=== PATIENT | male | born 1975 | race Caucasian/White ===

== ENCOUNTER 2016-12-27 12:48 | Inpatient (IN) | payer OTHER ==
[~2016-12-27] VITALS: Ht 175.3 cm; Wt 91.4 kg
[2016-12-27 13:46] LABS: AMPHETAMINES LEVEL URINE NEGATIVE (NEGATIVE); BENZODIAZEPINES URINE NEGATIVE (NEGATIVE); COCAINE METABOLITE URINE NEGATIVE (NEGATIVE); CONTROL LINE INT CTR LINE PRESENT; METHADONE URINE NEGATIVE (NEGATIVE); OPIATES URINE NEGATIVE (NEGATIVE); TRICYCLIC ANTIDEPRESS URINE NEGATIVE (NEGATIVE)
[2016-12-27 13:52] LABS: MEAN CORPUSCULAR HEMOGLOBIN 30.1 pg (27.0-33.0); MEAN CORPUSCULAR HGB CONC 34.5 g/dl (32.0-36.5); MEAN CORPUSCULAR VOLUME 87.2 fl (80.0-96.0); RED CELL DISTRIBUTION WIDTH 12.2 % (11.5-14.5); WHITE BLOOD COUNT 7.7 K/mm3 (4.0-10.0)
[2016-12-27 14:05] LABS: ALKALINE PHOSPHATASE 68 U/L (45-117); ALT/SGPT 27 U/L (12-78); ANION GAP 7 MEQ/L (8-16); AST/SGOT 15 U/L (15-37); BLOOD UREA NITROGEN 12 MG/DL (7-18); CALCIUM LEVEL 9.2 MG/DL (8.5-10.1); CARBON DIOXIDE LEVEL 29 MEQ/L (21-32); CHLORIDE LEVEL 104 MEQ/L (98-107); CREATININE FOR GFR 0.86 MG/DL (0.70-1.30); GLOMERULAR FILTRATION RATE > 60.0 (>60); GLUCOSE, FASTING 93 MG/DL (70-105); POTASSIUM SERUM 4.3 MEQ/L (3.5-5.1); SODIUM LEVEL 140 MEQ/L (136-145)
[2016-12-27 14:06] LABS: ALBUMIN/GLOBULIN RATIO 1.33 (1.00-1.93); BILIRUBIN,DIRECT < 0.1 MG/DL (0.0-0.2); BILIRUBIN,TOTAL 0.3 MG/DL (0.2-1.0)
[2016-12-27] MEDS ORDERED: PROZ40CA PO (15:50)
--- NOTE | 2016-12-27 17:12 | EDDOCDS ---
Physician Documentation [facility] Name: Kevin Morataya Age: 41 yrs Sex: Male : 1975 Arrival Date: 12/27/2016 Time: 12:48 Bed BHU1 Private MD: NO PRIMARY PHYSICIAN, . Disposition: 12/27/16 15:50 Hospitalization ordered by Brandi Phillips for Inpatient Admission. Preliminary diagnosis is Post-traumatic stress disorder (PTSD). - Bed requested for Admit. - Status is Inpatient Admission. mcp - Condition is Stable. - Problem is an ongoing problem. - Symptoms have worsened. Historical: - Allergies: no known allergies; - Home Meds: 1. Prozac 40 mg Oral cap 1 cap once daily - PMHx: Depression; PTSD; - PSHx: none; - Social history: Smoking status: Patient uses tobacco products, heavy tobacco smoker. No barriers to communication noted, The patient speaks fluent Puerto Rican, Speaks appropriately for age. - Family history: Not pertinent. - : The pt / caregiver states he / she is not on anticoagulants. Home medication list is obtained from the patient. - Exposure Risk Screening:: None identified. Vital Signs: 12/27 12:50 BP 122 / 67; Pulse 80; Resp 18 S; Temp 95.9(O); Pulse Ox 98% on R/A; Weight 85.28 kg / gr2 188.01 lbs (R); Height 69 in. (175.26 cm) (R); Pain 0/10; 17:04 BP 130 / 86; Pulse 83; Resp 18; Temp 97(O); Pulse Ox 96% on R/A; Pain 0/10; mcp 12:50 Body Mass Index 27.76 (85.28 kg, 175.26 cm) gr2 MDM: 13:09 Consult PFS/PSA/School Cafeteria Head Cook ordered. br1 13:09 Consult PFS/PSA/School Cafeteria Head Cook: Patient's case requires discussion with on-call br1 Psychiatrist ordered. 13:09 PSA/PFS to call Nursing Drywall Hanger Framer, to enter patient data on [place] Safe Act if patient br1 involuntarily admitted or transferred for SI or HI ordered. 13:09 Confirm accurate psychiatric medication list and times of last dosage ordered. br1 13:09 Detain Pt Until Medically/PFS Cleared ordered. br1 13:10 Acetaminophen Level Ordered. EDMS 13:10 Basic Metabolic Profile Ordered. EDMS 13:10 Complete Blood Count Ordered. EDMS 13:10 Drug Eval Toxicology ED Only Ordered. EDMS 13:10 Ethyl Alcohol (ethanol) Ordered. EDMS 13:10 Liver Profile Ordered. EDMS 13:10 Salicylate Level Ordered. EDMS 13:10 Thyroid Stimulating Hormone Ordered. EDMS 13:34 REGULAR DIET PLASTIC BLANK+DIET ordered. EDMS 14:29 Acetaminophen Level Reviewed. br1 14:29 Basic Metabolic Profile Reviewed. br1 14:29 Salicylate Level Reviewed. br1 14:29 Complete Blood Count Reviewed. br1 14:29 Drug Eval Toxicology ED Only Reviewed. br1 14:29 Ethyl Alcohol (ethanol) Reviewed. br1 14:29 Liver Profile Reviewed. br1 14:29 Thyroid Stimulating Hormone Reviewed. br1 14:30 Consult PFS/PSA/Socail Worker: Cleared medically for eval ordered. br1 14:45 BED REQUEST+ADM ordered. EDMS 14:58 Financial registration complete. lg 15:14 [facility] Payment Agreement was scanned into [employer] and attached to record. lg 16:24 Admit to IMHU: ordered. EDMS 16:29 [facility] Legal paperwork was scanned into [employer] and attached to record. jl 16:29 Consult PFS/PSA/Socail Worker: Cleared medically for eval complete. jl 16:29 Consult PFS/PSA/School Cafeteria Head Cook complete. jl 16:29 Consult PFS/PSA/School Cafeteria Head Cook: Patient's case requires discussion with on-call jl Psychiatrist complete. 16:29 PSA/PFS to call Nursing Drywall Hanger Framer, to enter patient data [place] Safe [place] if patient jl involuntarily admitted or transferred for SI or HI complete. Signatures: Dispatcher [employer] EDToyin Edwards RN [place] Lujan mcp, PSA PSA Jerry Berrios, Reg Reg lg Davey Bueno RN RN mlNadeem Blackwood MD MD br1 The chart was reviewed and I authenticate all verbal orders and agree with the evaluation and treatment provided.Attachments: 15:14 [facility] Payment Agreement lg MTDD
--- NOTE | 2016-12-27 17:12 | EDDOCDS ---
Nurse's Notes [facility] Name: Kevin Morataya Age: 41 yrs Sex: Male : 1975 Arrival Date: 12/27/2016 Time: 12:48 Bed [facility] Private MD: NO PRIMARY PHYSICIAN, . Diagnosis: Post-traumatic stress disorder (PTSD) Presentation: 12/27 12:55 Presenting complaint: Patient states: "I want to kill myself". Mental Health Triage mlb1 Level: Level 2: The patient displays active suicidal ideations. Adult Sepsis Screening: The patient does not have new or worsening altered mentation. Patient's respiratory rate is less than 22. Systolic blood pressure is greater than 100. Patient has a qSOFA score of 0- Negative Sepsis Screen. 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 Transition of care: patient was not received from another setting of care. Red Flag criteria, patient assessed and taken directly to a bed. 12:55 Acuity: TAYLOR Level 3 mlb1 12:55 Method Of Arrival: Walkin/Carried/Asstd mlb1 12:57 Mental Health Triage Level: Level 2:. Suicide/Homicide risk assessment- The patient mlb1 admits to and/or has been reported to be having suicidal ideations. The patient reports that he/she has not been admitted to an inpatient mental health facility in the last 30 days. The patient reports that he/she does not have a recent or current history of substance abuse. The patient reports that he/she has a prior history of suicide attempt and/or organized plan. The patient reports that he/she has experienced a significant life altering event in the last 30 days. The patient reports that he/she has adequate social support. The patient reports he/she has no significant chronic medical condition(s). Triage Assessment: 12:57 General: Appears in no apparent distress, Behavior is cooperative, flat. Pain: Denies mlb1 pain. Pt Declines HIV testing. Historical: - Allergies: no known allergies; - Home Meds: 1. Prozac 40 mg Oral cap 1 cap once daily - PMHx: Depression; PTSD; - PSHx: none; - Social history: Smoking status: Patient uses tobacco products, heavy tobacco smoker. No barriers to communication noted, The patient speaks fluent Bengali, Speaks appropriately for age. - Family history: Not pertinent. - : The pt / caregiver states he / she is not on anticoagulants. Home medication list is obtained from the patient. - Exposure Risk Screening:: None identified. Screenin:04 Screening information is obtained from the patient. Fall risk: No risks identified. mcp Assistance ADL's: requires no assistance with activities of daily living. Abuse/DV Screen: The patient / caregiver reports he/she is: not in a situation that causes fear, pain or injury. Nutritional screening: No deficits noted. Advance Directives: Currently, there is no health care proxy. There is no active DNR order. home support is adequate. Assessment: 14:04 General: Appears in no apparent distress, comfortable, Behavior is cooperative. Pain: mcp Denies pain. Neurological: No deficits noted. Respiratory: Airway is patent Respiratory effort is even, unlabored. Derm: Skin is pink, warm & dry. 15:00 General: Appears in no apparent distress, comfortable, Behavior is cooperative. Pain: mcp Denies pain. Neurological: No deficits noted. Respiratory: Airway is patent Respiratory effort is even, unlabored. Derm: Skin is pink, warm & dry. 16:00 General: Appears in no apparent distress, comfortable, Behavior is cooperative. Pain: mcp Denies pain. Neurological: No deficits noted. Respiratory: Airway is patent Respiratory effort is even, unlabored. Derm: Skin is pink, warm & dry. 17:03 General: Appears in no apparent distress, comfortable, Behavior is cooperative. Pain: mcp Denies pain. Neurological: No deficits noted. Respiratory: Airway is patent Respiratory effort is even, unlabored. Derm: Skin is pink, warm & dry. Mental Health Eval: 14:36 Mental health consult is initiated at 13:30. Status: Patient states that he jl retired from the recently, following 20 years of service. [facility] Behavioral Health: The patient is not an established patient of [facility] Behavioral Health. Referral Information: Evaluation referral is generated by the patient himself / herself. The patient was referred for evaluation because of worsening sx of PTSD & depression, including SI with a plan. Subjective: The patients chief complaint is "I was going to kill myself". Delusions are denied. Patient's mood is both depressed & anxious. Hallucinations are denied. Patient reports having a long h/o depression & anxiety, with no treatment hx until just a couple of weeks ago. 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 Prior to his separation, he saw a psychiatrist for the first time. He admits that he has been depressed for "At least 3 or 4 years". He states that he was started on Prozac, although is yet to receive any benefit. He reports multiple deployments ([place], [place] & [place]) during his career & reports being dx with PTSD when he saw that psychiatrist. He relates experiencing significant anxiety, erratic sleep (sweats, nightmares, teeth grinding), erratic appetite, & was noted to display increased PMA during the interview. He admits that he had a plan for suicide that included taking Rx morphine pills that belong to his . He states that he lives with his . They have 2 children, ages 21 & 13. He states that it was the thought of his family that kept him from carrying out his plan. He denies h/o attempts or substance abuse. Mental Health history: Untreated depression, anxiety, sx of PTSD & sleep disturbance. Mental Health Admissions: None. Current Outpatient Mental Health Services: None. Current living environment is The patient currently lives with his family. Patient presents to Emergency Department with the following symptoms within the past 2 weeks: anxiety, erratic appetite depressed mood, sleep disturbance - erratic suicidal ideation with plan for pills. Substance abuse: Pt denies. Mental status exam: Patients appearance is appropriate, Patient's behavior is appropriate, with some increased psychomotor activity noted. Speech is unspontaneous Affect is restricted. Mood is anxious. depressed. Hallucinations are denied. Appetite is erratic Memory is good. Energy level is normal. Content of thought is normal. Thought process is intact. Cognitive level is oriented to person, place, time and situation Patient's insight is fair. Judgement is good. Rapport with interviewer is good. Suicidal Ideation present with a plan to kill self by pills. Homicidal ideation is denied. 15:43 Disposition: Medically cleared for disposition by Nadeem Allen MD Psychiatric Consult jl is performed by phone with Dr Brandi Phillips. [facility] Admission Criteria: The patient is experiencing suicidal ideation. The patient requires continuous observation and/or control to protect self, others or property. The patient's care requires a multi-modal treatment plan under close supervision and coordination due to the complexity and severity of the patient's symptoms. Legal Status: Patient's legal status will be Emergency admission: 9.39. DSM-V Differential Diagnosis: Major Depressive Disorder recurrent episode (F33.0) severe (F33.2) Posttraumatic Stress Disorder (F 43.10). Insurance Pre-Certification: Not Required. Vital Signs: 12:50 BP 122 / 67; Pulse 80; Resp 18 S; Temp 95.9(O); Pulse Ox 98% on R/A; Weight 85.28 kg gr2 (R); Height 69 in. (175.26 cm) (R); Pain 0/10; 17:04 BP 130 / 86; Pulse 83; Resp 18; Temp 97(O); Pulse Ox 96% on R/A; Pain 0/10; mcp 12:50 Body Mass Index 27.76 (85.28 kg, 175.26 cm) gr2 Vitals: 12:50 Log In Time: December 27, 2016 at 12:50. RN notified that patient meets Red Flag gr2 criteria. ED Course: 12:49 Patient visited by Jessica Iraheta. gr2 12:49 NO PRIMARY PHYSICIAN, . is Private Physician. gr2 12:49 Patient moved to Waiting gr2 12:53 Patient visited by Jessica Iraheta. gr2 12:55 Patient visited by Davey Bueno RN. mlb1 12:55 Triage Initiated mlb1 12:57 Patient visited by Davey Bueno RN. mlb1 12:57 Patient moved to [facility] mlb1 12:58 Patient visited by Dvaey Bueno RN. mlb1 13:00 Patient visited by Mathew Nguyen. rn1 13:09 Nadeem Allen MD is Attending Physician. br1 13:22 Patient visited by Mathew Nguyen. rn1 13:30 Patient visited by Mathew Nguyen. rn1 13:37 Patient visited by [place] PSA. jl 13:45 Patient visited by Mathew Nguyen. rn1 14:05 Patient visited by Toyin Green RN. mcp 14:05 The patient / caregiver is instructed regarding the plan of care and ED course. Patient mcp has correct armband on for positive identification. Placed in psych safe attire. Bed in low position. Call light in reach. 14:05 No IV's were initiated during this patient's visit. No procedures done that require mcp assistance. 14:06 Patient visited by Mathew Nguyen. rn1 14:18 Patient visited by Mathew Nguyen. rn1 14:30 Patient visited by Mathew Nguyen. rn1 14:36 Patient visited by Nadeem Allen MD. br1 14:45 Patient visited by Mathew Nguyen. rn1 15:00 Patient visited by Mathew Nguyen. rn1 15:11 Patient name changed from Kevin\\S\\G\\S\\Ray\\S\\ to Kevin\\S\\Nathan\\S\\Ray. EDMS 15:14 [facility] Payment Agreement was scanned into [employer] and attached to record. lg 15:15 Patient visited by Mathew Nguyen. rn1 15:36 Patient visited by Paula Richards PCA. rs6 15:50 Patient visited by Mathew Nguyen. rn1 15:50 Brandi Phillips is Hospitalizing Provider. br1 15:53 Patient visited by Paula Richards PCA. rs6 16:11 Patient visited by Paula Richards PCA. rs6 16:15 Pt greeted and oriented to ED. Patient advised of names of staff involved in care, rs6 location of call mayo, wait times and NPO status. Security observing. Cardiac monitoring not applicable on this patient. 16:15 Psych Safety Check: Location: Medical Room. Visual Assessment: Sleeping, Cooperative. rs6 16:26 Patient visited by Paula Richards PCA. rs6 16:29 [facility] Legal paperwork was scanned into [employer] and attached to record. jl 16:40 Patient visited by Paula Richards PCA. rs6 Attachments: 16:29 [facility] Legal paperwork jl Order Results: Lab Order: Acetaminophen Level; SPEC'M 12/27/16 13:24 Test: ACETAMINOPHEN LEVEL; Value: < 2.0; Range: 10.0-30.0; Abnormal: Below low normal; Units: UG/ML; Status: F Lab Order: Basic Metabolic Profile; SPEC'M 12/27/16 13:24 Test: GLUCOSE, FASTING; Value: 93; Range: 70-105; Units: MG/DL; Status: F Test: BLOOD UREA NITROGEN; Value: 12; Range: 7-18; Units: MG/DL; Status: F Test: CREATININE FOR GFR; Value: 0.86; Range: 0.70-1.30; Units: MG/DL; Status: F Test: GLOMERULAR FILTRATION RATE; Value: > 60.0; Range: >60; Status: F Test: SODIUM LEVEL; Value: 140; Range: 136-145; Units: MEQ/L; Status: F Test: POTASSIUM SERUM; Value: 4.3; Range: 3.5-5.1; Units: MEQ/L; Status: F Test: CHLORIDE LEVEL; Value: 104; Range: 98-107; Units: MEQ/L; Status: F Test: CARBON DIOXIDE LEVEL; Value: 29; Range: 21-32; Units: MEQ/L; Status: F Test: ANION GAP; Value: 7; Range: 8-16; Abnormal: Below low normal; Units: MEQ/L; Status: F Test: CALCIUM LEVEL; Value: 9.2; Range: 8.5-10.1; Units: MG/DL; Status: F Test Note: ; Units are mL/min/1.73 m2 Chronic Kidney Disease Staging per NKF: Stage I & II GFR >=60 Normal to Mildly Decreased Stage III GFR 30-59 Moderately Decreased Stage IV GFR 15-29 Severely Decreased Stage V GFR <15 Very Little GFR Left ESRD GFR <15 on CRAFT RECRUITER Lab Order: Complete Blood Count; [facility]' 12/27/16 13:24 Test: WHITE BLOOD COUNT; Value: 7.7; Range: 4.0-10.0; Units: K/mm3; Status: F Test: RED BLOOD COUNT; Value: 5.12; Range: 4.30-6.10; Units: M/mm3; Status: F Test: HEMOGLOBIN; Value: 15.4; Range: 14.0-18.0; Units: g/dl; Status: F Test: HEMATOCRIT; Value: 44.6; Range: 42.0-52.0; Units: %; Status: F Test: MEAN CORPUSCULAR VOLUME; Value: 87.2; Range: 80.0-96.0; Units: fl; Status: F Test: MEAN CORPUSCULAR HEMOGLOBIN; Value: 30.1; Range: 27.0-33.0; Units: pg; Status: F Test: MEAN CORPUSCULAR HGB CONC; Value: 34.5; Range: 32.0-36.5; Units: g/dl; Status: F Test: RED CELL DISTRIBUTION WIDTH; Value: 12.2; Range: 11.5-14.5; Units: %; Status: F Test: PLATELET COUNT, AUTOMATED; Value: 211; Range: 150-450; Units: k/mm3; Status: F Lab Order: Drug Eval Toxicology ED Only; SPEC'M 12/27/16 13:26 Test: AMPHETAMINES LEVEL URINE; Value: NEGATIVE; Range: NEGATIVE; Status: F Test: BARBITURATES URINE; Value: NEGATIVE; Range: NEGATIVE; Status: F Test: BENZODIAZEPINES URINE; Value: NEGATIVE; Range: NEGATIVE; Status: F Test: CANNABINOIDS URINE; Value: NEGATIVE; Range: NEGATIVE; Status: F Test: COCAINE METABOLITE URINE; Value: NEGATIVE; Range: NEGATIVE; Status: F Test: METHADONE URINE; Value: NEGATIVE; Range: NEGATIVE; Status: F Test: OPIATES URINE; Value: NEGATIVE; Range: NEGATIVE; Status: F Test: TRICYCLIC ANTIDEPRESS URINE; Value: NEGATIVE; Range: NEGATIVE; Status: F Test Note: ; ALL PRESUMPTIVE POSITIVE FINDINGS ARE UNCONFIRMED NORMAL VALUES THRESHOLD IN NG/ML AMPHETAMINES 1000 METHAMPHETAMINES 1000 BARBITURATES 300 BENZODIAZEPINES 300 CANNABINOIDS (THC) 50 COCAINE METABOLITE 300 METHADONE 300 OPIATES 300 PHENCYCLIDINE 25 TRICYCLIC ANTIDEPRESSANTS 1000 RESULTS ARE FOR MEDICAL PURPOSES ONLY. ALL URINE SPECIMENS WILL BE SAVED FOR 3 DAYS. IF CONFIRMATION OF A PRESUMPTIVE POSTIVE SCREEN RESULT IS DESIRED, CALL CHEMISTRY ([phone]) AND REQUEST URINE TO BE SENT TO REFERENCE LAB. FOR A LIST OF CLOSELY RELATED COMPOUNDS PLEASE CALL THE LAB. Lab Order: Ethyl Alcohol (ethanol); SPEC'M 12/27/16 13:24 Test: ETHYL ALCOHOL (ETHANOL); Value: < 0.003; Range: 0.000-0.010; Units: %; Status: F Lab Order: Liver Profile; SPEC'M 12/27/16 13:24 Test: AST/SGOT; Value: 15; Range: 15-37; Units: U/L; Status: F Test: ALT/SGPT; Value: 27; Range: 12-78; Units: U/L; Status: F Test: ALKALINE PHOSPHATASE; Value: 68; Range: 45-117; Units: U/L; Status: F Test: BILIRUBIN,TOTAL; Value: 0.3; Range: 0.2-1.0; Units: MG/DL; Status: F Test: BILIRUBIN,DIRECT; Value: < 0.1; Range: 0.0-0.2; Units: MG/DL; Status: F Test: TOTAL PROTEIN; Value: 7.0; Range: 6.4-8.2; Units: GM/DL; Status: F Test: ALBUMIN; Value: 4.0; Range: 3.2-5.2; Units: GM/DL; Status: F Test: ALBUMIN/GLOBULIN RATIO; Value: 1.33; Range: 1.00-1.93; Status: F Lab Order: Salicylate Level; SPEC'M 12/27/16 13:24 Test: SALICYLATE LEVEL; Value: 2.3; Range: 5.0-30.0; Abnormal: Below low normal; Units: MG/DL; Status: F Lab Order: Thyroid Stimulating Hormone; SPEC'M 12/27/16 13:24 Test: THYROID STIMULATING HORMONE; Value: 1.140; Range: 0.358-3.740; Units: uIU/ML; Status: F Outcome: 15:50 Decision to Hospitalize by Provider. br1 17:04 Discharge Assessment: patient administered narcotics - no. The following High Risk [facility] Discharge criteria are identified: None. Admitted to Psych accompanied by tech, via wheelchair, with chart. Condition: stable. No special radiology studies were completed. Property :Personal belongings accompany Pt. 17:[address] [facility] Signatures: Dispatcher [employer] Toyin Serrano, RN RN [facility] [place], PSA PSA Jerry Berrios, Davey Escudero lg RN RN mlb1 Nadeem Allen MD MD br1 Jessica Iraheta gr2 Paula Richards, NIDA LUMBER INSPECTOR rs6 Mathew Nguyen rn1 Corrections: (The following items were deleted from the chart) 12:58 12:55 Suicide/Homicide risk assessment- the patient denies having any suicidal and/or mlb1 homicidal ideations and does not present with any other emotional, behavioral or mental health complaints mlb1 MTDD
[2016-12-27 17:19] VITALS: BP 130/82
[2016-12-27] MEDS ORDERED: MOM 30ML SUSPENSION UDC PO PRN (18:15)
[2016-12-27] MEDS ORDERED: ACETAMINOPHEN TAB 650MG DOSE (2X325MG) PO PRN (18:15)
[2016-12-27] MEDS ORDERED: MAALOX 30 ML SUSP *UDC PO PRN (18:15)
[2016-12-27] MEDS ORDERED: traZODone 50 MG TAB PO PRN (18:15)
[2016-12-27] MEDS: NICOTINE 21MG/24HR 1 EA TRANSDERMAL TD SCH (19:24)
[2016-12-28 07:05] VITALS: BP 125/71
[2016-12-28] MEDS: NICOTINE 21MG/24HR 1 EA TRANSDERMAL TD SCH (08:56)
[2016-12-28] MEDS: FLUoxetine 20 MG CAP PO SCH (08:56)
--- NOTE | 2016-12-28 09:45 | HPEPDOC ---
Medical History and Physical Date of Admission Dec 27, 2016 at 17:20 History and Physical PCP: None ATTENDING: Dr. Raheem Wild HPI: 41yoM admitted to [facility] for other specified depressive disorder, being medically examined today. No acute medical complaints today. Denies any fevers, chills, weakness, fatigue, GARCIA, CP, SOB, cough, palpitations, abdominal pain, N/V /D or changes in bowel or bladder habits. 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 ROS: As noted in HPI, otherwise 11pt ROS of systems reviewed and unremarkable PE: GEN: 41yoM, appears stated age. Well-nourished, well developed. No acute distress. Alert and oriented x 3. Pleasant, interactive. HEENT: Normocephalic, atraumatic. Pupils are equal, round, and reactive to light. Extraocular movements are intact. No nystagmus appreciated. Sclera are nonicteric. Conjunctiva without injection. Nose midline. Nasal turbinates without bogginess. EACs both patent BL. TMs both visualized and mauro with good cone of light, no bulging or erythema. No facial asymmetry. Moist mucous membranes. Dentition fair. Pharynx pink and moist, no cobblestoning. Neck supple , trachea midline. No lymphadenopathy or thyromegaly appreciated. CHEST: Regular rate and rhythm, +S1, +S2 LUNGS: Clear to auscultation bilaterally. No wheezes, rales, or rhonchi. Breathing appears symmetric and easy. Patient is speaking in full sentences. No accessory muscle use. ABD: Round, soft, non-tender, non-distended. +Bowel sounds throughout. No rebound or guarding. No costovertebral angle tenderness. EXT: Pulses 2+ bilaterally dorsalis pedis and radial. No lower extremity edema appreciated. SKIN: [place], dry, warm. Capillary refill <2sec. No rashes. NEURO: Alert and oriented x 3. Cranial nerves III-XII are intact. No focal deficits appreciated. EKG: pending. A&P: 41yoM admitted to [facility] for other specified depressive disorder 1. Psych. Plan per Psychiatry. Obtain baseline EKG to assure the safety of psychiatric medications as they can prolong the QT interval. 2. Nicotine dependence. Patch available. 3. Follow up. No Primary Care Provider. Will attempt to establish PCP on discharge. 4. Staff member present throughout exam, kimmy Neff. Vital Signs Vital Signs Label Value Date Time Patient Temperature 96.0 degrees F 12/28/16704 Pulse 70 12/28/16 07 Respiratory Rate 16 bpm 12/28/16 07 Blood Pressure Assessment 125/71 (89) 12/28/16 0705 Laboratory Data Labs 24H Laboratory Tests 2 12/27/16 13:24: Acetaminophen Level < 2.0L, Aspartate Amino Transf (AST/SGOT) 15, Alanine Aminotransferase (ALT/SGPT) 27, Alkaline Phosphatase 68, Total Bilirubin 0.3, Direct Bilirubin < 0.1, Albumin 4.0, Albumin/Globulin Ratio 1.33, Anion Gap 7L, Calcium Level 9.2, Ethyl Alcohol Level < 0.003, Glomerular Filtration Rate > 60.0, Salicylates Level 2.3L, Thyroid Stimulating Hormone (TSH) 1.140, Total Protein 7.0 12/27/16 13:26: Urine Amphetamine Level NEGATIVE, Urine Benzodiazepines Screen NEGATIVE, Urine Cannabinoids NEGATIVE, Urine Cocaine Metabolite NEGATIVE, Urine Opiates Screen NEGATIVE, Urine Barbiturates, Qualitative NEGATIVE, Urine Methadone Screen NEGATIVE, Urine Tricyclic Antidepressants NEGATIVE CBC/BMP Laboratory Tests 12/27/16 13:24 Red Blood Count 5.12, Mean Corpuscular Volume 87.2, Mean Corpuscular Hemoglobin 30.1, Mean Corpuscular Hemoglobin Concent 34.5, Red Cell Distribution Width 12.2 Home Medications Scheduled Fluoxetine HCl (Prozac) 40 Mg Cap 40 MG PO QHS Allergies Coded Allergies: No Known Allergies (Unverified , 12/27/16) Lalita Chapman Dec 28, 2016 09:45
[2016-12-28] MEDS ORDERED: traZODone 50 MG TAB PO PRN (11:15)
--- NOTE | 2016-12-28 11:46 | MHHPE ---
DATE OF ADMISSION: 12/27/2016 LEGAL STATUS ON ADMISSION: 9.39 legal status. CHIEF COMPLAINT: "I was feeling depressed and I had suicidal thoughts." HISTORY OF PRESENT ILLNESS: 41-year-old male admitted to our unit on a 9.39 legal status. The patient has a history of depression and anxiety. 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 Before he was discharged, the patient went to see a psychiatrist and went through the differential diagnoses and he was diagnosed of depression and posttraumatic stress disorder (PTSD). 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 The patient states that for four years that he was more in [place] than at home. The patient states that he went through very rough deployments and he was finally diagnosed with PTSD. He says that he never tried to get help because "the way you are looked at in the if you are going to the doctor." The patient also reports symptoms of depression with low energy, feeling tired all the time, isolating, "I don't talk," poor self esteem, reading 2 to 3 hours, my appetite goes and goes, and he had episodes of suicidal thoughts that prompted him to come to the emergency department. The patient is also reporting that the PTSD symptoms are severely impairing his quality of life, he says that he isolates and does not interact with people. He feels numb, "always on edge." "Place myself always at the defense." "Looking at people different." The patient denies flashbacks, but reports frequent nightmares and "smells" that brings the memories of the During the interview today, the patient is calm and cooperative. There is no evidence of psychotic symptoms. No auditory or visual hallucinations or delusions. The patient also reports that since he has been placed on Prozac he has episodes of hyperactivation, in which for approximately one day he feels more energetic, like cleaning the house, and during this short lived episode he reports "I am getting close to my family." PAST MEDICAL HISTORY: The patient reports inguinal hernia, chronic back pain with bulging discs, micro tears on the shoulders, shrapnel, and severe bilateral hearing loss. PAST PSYCHIATRIC HISTORY: As above, the patient has been diagnosed of depression and PTSD. FAMILY HISTORY: The patient reports that he has uncles on his mother's side of the family that had problems with alcohol. No history of suicide in the family. SUBSTANCE ABUSE HISTORY: The patient reports that during a period of time and post deployments when he was dealing with PTSD symptoms, he used alcohol in excess. He sees this abuse as a measure of trying to cope and self medication. The patient reports that he does not drink now more than one or two beers, maybe "when there is a game." The patient denies any problems with alcohol, past or currently. SOCIAL HISTORY: The patient was raised by both parents. Reports a completely normal childhood with no abuse or neglect. He graduated high school and joined the [employer] at 20. He has been 20 years in the service. He has been retired since April 2016. He lives with his family in the [facility]. He has two children that live in the area -- a daughter that is in college and a son of 13. REVIEW OF SYSTEMS: CONSTITUTIONAL: No weight loss, fevers, chills, weakness or fatigue. HEENT: No visual loss, blurry vision, double vision or yellow sclerae. No hearing loss, sneezing, congestion, runny nose or sore throat. SKIN: No rash or itching. CARDIOVASCULAR: No chest pain, chest pressure, chest discomfort, palpitations, or edema. RESPIRATORY: No shortness of breath, cough or sputum. GASTROINTESTINAL: No anorexia, nausea, vomiting, or diarrhea. No abdominal pain or blood. GENITOURINARY: No burning or pain on urination. NEUROLOGIC: No headache, dizziness, syncope, paralysis, ataxia, numbness or tingling. MUSCULOSKELETAL: No muscle, back pain, joint pain or stiffness. HEMATOLOGIC: No anemia, bleeding or bruising. LYMPHATICS: No history of splenectomy. ENDOCRINOLOGIC: No reports of sweating, cold or heat intolerance. No polyuria or polydipsia. ALLERGIES: No history of asthma, hives, eczema or rhinitis. PHYSICAL EXAMINATION: As per physician's printing bindery assistant. LABORATORY DATA: At admission, CBC within normal limits. CMP is unremarkable. TSH within normal limits. Urine drug screen is negative. Blood alcohol level is negative. MENTAL STATUS EXAMINATION: The patient is dressed in [facility]. The patient is cooperative. His speech is clear, coherent with normal rate and is spontaneous. Has fair eye contact. Mood is anxious, depressed. Affect is congruent with mood. The patient is oriented to time, place, person and situation. Maintains attention and concentration fairly. Instant recall, recent and remote memory are intact. Thought processes are coherent, logical and goal directed. The patient does not have auditory or visual hallucinations. The patient does not have paranoid, persecutory, somatic, grandiose or rastafari delusions. The patient reports suicidal ideation. Denies homicidal thoughts. Judgment and insight are fair. DIAGNOSES: AXIS I: Major depressive disorder. AXIS II: Posttraumatic stress disorder (PTSD). INITIAL TREATMENT PLAN: The patient was admitted on a legal status. Complete history was obtained. With his permission, family will be contacted and database will be expanded. His medication regimen will be reviewed and changed accordingly. He will be provided with protective environment. He will be treated with individual, group and milieu therapies. He will also received supportive psychoeducation. Discharge planning will commence immediately. Length of stay will be between 5 and 7 days. Outpatient followup will be strongly recommended. The treatment plan will focus initially on depression, risk for suicide.
[2016-12-28 18:00] VITALS: BP 121/68
[2016-12-28] MEDS: traZODone 50 MG TAB PO SCH (21:07)
[2016-12-29 06:33] VITALS: BP 141/65
[2016-12-29] MEDS: NICOTINE 21MG/24HR 1 EA TRANSDERMAL TD SCH (08:09)
[2016-12-29] MEDS: FLUoxetine 20 MG CAP PO SCH (08:09)
[2016-12-29] MEDS: OSELTAMIVIR PHOSPHATE 75 MG CAP (TAMIFLU) PO SCH (12:25)
--- NOTE | 2016-12-29 14:25 | IPNPDOC ---
[facility] Progress Note Progress Note DATE OF SERVICE: 12/29/16 HISTORY: Mr. Morataya is a 41-year-old male with a history of depression and anxiety. 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 Prior to his discharge he was diagnosed with depression and PTSD. 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 He never sought help due to "the way you are looked in the if you are going to the doctor." He reports low energy, feeling tired all the time, isolating, poor self-esteem, fluctuating appetite, and episodes of suicidal thoughts of which had prompted him to come to the emergency department. He states these disorders are impairing his quality of life as he isolates himself and is "always on edge." He admits to "looking at people different" and "always placing myself on Defense." He states that he has periods of high energy and hyper activation that'll last approximately one day and allow him to "get close to my family." VITAL SIGNS: See below. CURRENT MEDICATIONS: - Trazodone 50 mg by mouth daily at bedtime - Trazodone 50 mg by mouth daily at bedtime when necessary repeat 1 in 1 hour if no result - Prozac 50 mg by mouth every morning SUBJECTIVE: "I still have some depression, but I feel much more rested." OBJECTIVE: Patient states that she is sleeping much better through the night and has not experienced any diaphoresis or nightmares since admission. He seems that his energy level and activity level have greatly increased, although he states this is similar to previous periods of high energy and hyper activation. He continues to complain of mild depressive symptoms. He shows interest in outpatient follow-up at [place] [facility] upon his discharge, as well as interest in a PTSD program in [facility]. He states that groups have helped him to become more social on the unit. He admits to still feeling like he has more to gain from his admission. He denies issues with sleeping or eating. He denies any medication side effects. MENTAL STATUS EXAMINATION: Patient was down in a group therapy session prior to interview. He is dressed in hospital clothing and sits for entirety of interview. He maintains fair eye contact and exhibits hyperactive behaviors. He is cooperative and open, alert and oriented 3. She is talkative but speaks a fast almost pressured rate clearly with fluctuating tone. He admits that his mood is still mildly depressed although somewhat better, his affect is consistent with his mood. He has linear goal-directed thought processes and that better coping mechanisms and an appropriate medication regimen. He denies delusions or hallucinations. He is able to contract for safety on the unit. His insight and judgment remain somewhat impaired. His attention is appropriate. His recent, remote, and immediate memory are intact. His intellectual functioning remains fair. ASSESSMENT: 1. Major depressive disorder. 2. Post traumatic stress disorder (PTSD). MANAGEMENT PLAN: 1. Continue trazodone 50 mg by mouth daily at bedtime. 2. Continue trazodone 50 mg by mouth daily at bedtime when necessary repeat 1 in 1 hour if no result. 3. Continue Prozac 20 mg by mouth every morning. 4. Continue medication management on with individual and group therapies. Vital Signs Vital Signs Date Time Temp Pulse Resp B/P Pulse Ox O2 Delivery O2 Flow Rate FiO2 12/29/16 06:33 97.5 69 16 141/65 Current Medications Current Medications Acetaminophen (Tylenol Tab) 650 mg Q6HP PRN PO HEADACHE or DISCOMFORT Last administered on 12/28/16 08:56; Start 12/27/16 at 18:15; Stop 01/26/17 at 18:14 Al Hydrox/Mg Hydrox/Simethicone (Mylanta) 30 ml Q4HP PRN PO HEARTBURN/ INDIGESTION; Start 12/27/16 at 18:15; Stop 01/26/17 at 18:14 Fluoxetine HCl (PROzac) 40 mg QAM PO Last administered on 12/29/16 08:09; Start 12/28/16 at 09:00; Stop 01/27/17 at 08:59 Home Med (Med Rec Complete!) ASDIRECTED XX ; Start 12/27/16 at 16:00; Stop at 16:00; Status DC Magnesium Hydroxide (Milk Of Magnesia) 30 ml DAILYPRN PRN PO CONSTIPATION; Start 12/27/16 at 18:15; Stop 01/26/17 at 18:14 Nicotine (Nicoderm Cq 21mg) 1 patch DAILY TD Last administered on 12/29/16 08: 09; Start 12/27/16 at 19:00; Stop 01/26/17 at 18:59 Oseltamivir Phosphate (Tamiflu) 75 mg DAILY PO Last administered on 12/29/16 12:25; Start 12/29/16 at 09:00; Stop 01/08/17 at 08:59 Trazodone HCl (Desyrel) 50 mg QHS PO Last administered on 12/28/16 21:07; Start 12/28/16 at 21:00; Stop 01/27/17 at 20:59 Trazodone HCl (Desyrel) 50 mg QHSP PRN PO INSOMNIA Last administered on 20:54; Start 12/27/16 at 18:15; Stop 12/28/16 at 10:58; Status DC Trazodone HCl (Desyrel) 50 mg QHSP PRN PO repeat x 1 in 1 h if no result; Start 12/28/16 at 11:15; Stop 01/27/17 at 11:14 Allergies Coded Allergies: No Known Allergies (Unverified , 12/27/16) GME ATTESTATION GME ATTESTATION My preceptor for this patient encounter was Dr. Knox, he was physically present in the building during the encounter and was fully available. As needed , all aspects of the patient interview, examination, medical decision making process, and medical care plan development were reviewed and approved by the preceptor. Preceptor is aware and concurs with the plan as stated in the body of this note and will attest to such by his/her cosignature. DALTON HALL Dec 29, 2016 14:25
[2016-12-29 18:00] VITALS: BP 136/90
--- NOTE | 2016-12-29 18:11 | EDDOCDS ---
Physician Documentation [facility] Name: Kevin Morataya Age: 41 yrs Sex: Male : 1975 Arrival Date: 12/27/2016 Time: 12:48 Bed BHU1 Private MD: NO PRIMARY PHYSICIAN, . Disposition: 12/27/16 15:50 Hospitalization ordered by Brandi Phillips for Inpatient Admission. Preliminary diagnosis is Post-traumatic stress disorder (PTSD). - Bed requested for Admit. - Status is Inpatient Admission. mcp - Condition is Stable. - Problem is an ongoing problem. - Symptoms have worsened. Historical: - Allergies: no known allergies; - Home Meds: 1. Prozac 40 mg Oral cap 1 cap once daily - PMHx: Depression; PTSD; - PSHx: none; - Social history: Smoking status: Patient uses tobacco products, heavy tobacco smoker. No barriers to communication noted, The patient speaks fluent [place], Speaks appropriately for age. - Family history: Not pertinent. - : The pt / caregiver states he / she is not on anticoagulants. Home medication list is obtained from the patient. - Exposure Risk Screening:: None identified. Vital Signs: 12/27 12:50 BP 122 / 67; Pulse 80; Resp 18 S; Temp 95.9(O); Pulse Ox 98% on R/A; Weight 85.28 kg / gr2 188.01 lbs (R); Height 69 in. (175.26 cm) (R); Pain 0/10; 17:04 BP 130 / 86; Pulse 83; Resp 18; Temp 97(O); Pulse Ox 96% on R/A; Pain 0/10; mcp 12:50 Body Mass Index 27.76 (85.28 kg, 175.26 cm) gr2 MDM: 13:09 Consult PFS/PSA/Data Control Clerk ordered. br1 13:09 Consult PFS/PSA/Data Control Clerk: Patient's case requires discussion with on-call br1 Psychiatrist ordered. 13:09 PSA/PFS to call Nursing Human Resources Operations Manager, to enter patient data on [place] Safe [place] if patient br1 involuntarily admitted or transferred for SI or HI ordered. 13:09 Confirm accurate psychiatric medication list and times of last dosage ordered. br1 13:09 Detain Pt Until Medically/PFS Cleared ordered. br1 13:10 Acetaminophen Level Ordered. EDMS 13:10 Basic Metabolic Profile Ordered. EDMS 13:10 Complete Blood Count Ordered. EDMS 13:10 Drug Eval Toxicology ED Only Ordered. EDMS 13:10 Ethyl Alcohol (ethanol) Ordered. EDMS 13:10 Liver Profile Ordered. EDMS 13:10 Salicylate Level Ordered. EDMS 13:10 Thyroid Stimulating Hormone Ordered. EDMS 13:34 REGULAR DIET PLASTIC BLANK+DIET ordered. EDMS 14:29 Acetaminophen Level Reviewed. br1 14:29 Basic Metabolic Profile Reviewed. br1 14:29 Salicylate Level Reviewed. br1 14:29 Complete Blood Count Reviewed. br1 14:29 Drug Eval Toxicology ED Only Reviewed. br1 14:29 Ethyl Alcohol (ethanol) Reviewed. br1 14:29 Liver Profile Reviewed. br1 14:29 Thyroid Stimulating Hormone Reviewed. br1 14:30 Consult PFS/PSA/Socail Worker: Cleared medically for eval ordered. br1 14:45 BED REQUEST+ADM ordered. EDMS 14:58 Financial registration complete. lg 15:14 [facility] Payment Agreement was scanned into [employer] and attached to record. lg 16:24 Admit to IMHU: ordered. EDMS 16:29 [facility] Legal paperwork was scanned into [employer] and attached to record. jl 16:29 Consult PFS/PSA/Socail Worker: Cleared medically for eval complete. jl 16:29 Consult PFS/PSA/Data Control Clerk complete. jl 16:29 Consult PFS/PSA/Data Control Clerk: Patient's case requires discussion with on-call jl Psychiatrist complete. 16:29 PSA/PFS to call Nursing Human Resources Operations Manager, to enter patient data [place] Safe [place] if patient jl involuntarily admitted or transferred for SI or HI complete. 12/28 15:18 T-Sheet-- Draft Copy was scanned into [employer] and attached to record. gb Signatures: Dispatcher [employer] EDMS Toyin Green, RN RN Adams Flores, PSA PSA jl Julissa Sherwood, Reg Reg gb Jerry Omalley, Reg Reg lg Davey Bueno, RN RN mlb1 Nadeem Allen MD MD br1 The chart was reviewed and I authenticate all verbal orders and agree with the evaluation and treatment provided.Attachments: 12/27 15:14 [facility] Payment Agreement lg 12/28 15:18 T-Sheet-- Draft Copy gb Chart Complete MTDD
--- NOTE | 2016-12-29 18:12 | EDDOCDS ---
Physician Documentation [facility] Name: Kevin Moraatya Age: 41 yrs Sex: Male : 1975 Arrival Date: 12/27/2016 Time: 12:48 Bed BHU1 Private MD: NO PRIMARY PHYSICIAN, . Disposition: 12/27/16 15:50 Hospitalization ordered by Brandi Phillips for Inpatient Admission. Preliminary diagnosis is Post-traumatic stress disorder (PTSD). - Bed requested for Admit. - Status is Inpatient Admission. mcp - Condition is Stable. - Problem is an ongoing problem. - Symptoms have worsened. Historical: - Allergies: no known allergies; - Home Meds: 1. Prozac 40 mg Oral cap 1 cap once daily - PMHx: Depression; PTSD; - PSHx: none; - Social history: Smoking status: Patient uses tobacco products, heavy tobacco smoker. No barriers to communication noted, The patient speaks fluent Irish, Speaks appropriately for age. - Family history: Not pertinent. - : The pt / caregiver states he / she is not on anticoagulants. Home medication list is obtained from the patient. - Exposure Risk Screening:: None identified. Vital Signs: 12/27 12:50 BP 122 / 67; Pulse 80; Resp 18 S; Temp 95.9(O); Pulse Ox 98% on R/A; Weight 85.28 kg / gr2 188.01 lbs (R); Height 69 in. (175.26 cm) (R); Pain 0/10; 17:04 BP 130 / 86; Pulse 83; Resp 18; Temp 97(O); Pulse Ox 96% on R/A; Pain 0/10; mcp 12:50 Body Mass Index 27.76 (85.28 kg, 175.26 cm) gr2 MDM: 13:09 Consult PFS/PSA/Special Effects Artist ordered. br1 13:09 Consult PFS/PSA/Special Effects Artist: Patient's case requires discussion with on-call br1 Psychiatrist ordered. 13:09 PSA/PFS to call Nursing Builder Beam, to [place] data [place] if patient br1 involuntarily admitted or transferred for SI or HI ordered. 13:09 Confirm accurate psychiatric medication list and times of last dosage ordered. br1 13:09 Detain Pt Until Medically/PFS Cleared ordered. br1 13:10 Acetaminophen Level Ordered. EDMS 13:10 Basic Metabolic Profile Ordered. EDMS 13:10 Complete Blood Count Ordered. EDMS 13:10 Drug Eval Toxicology ED Only Ordered. EDMS 13:10 Ethyl Alcohol (ethanol) Ordered. EDMS 13:10 Liver Profile Ordered. EDMS 13:10 Salicylate Level Ordered. EDMS 13:10 Thyroid Stimulating Hormone Ordered. EDMS 13:34 REGULAR DIET PLASTIC BLANK+DIET ordered. EDMS 14:29 Acetaminophen Level Reviewed. br1 14:29 Basic Metabolic Profile Reviewed. br1 14:29 Salicylate Level Reviewed. br1 14:29 Complete Blood Count Reviewed. br1 14:29 Drug Eval Toxicology ED Only Reviewed. br1 14:29 Ethyl Alcohol (ethanol) Reviewed. br1 14:29 Liver Profile Reviewed. br1 14:29 Thyroid Stimulating Hormone Reviewed. br1 14:30 Consult PFS/PSA/Socail Worker: Cleared medically for eval ordered. br1 14:45 BED REQUEST+ADM ordered. EDMS 14:58 Financial registration complete. lg 15:14 [facility] [place] Agreement was scanned into [employer] and attached to record. lg 16:24 Admit to IMHU: ordered. EDMS 16:29 [facility] Legal paperwork was scanned into [employer] and attached to record. jl 16:29 Consult PFS/PSA/Socail Worker: Cleared medically for eval complete. jl 16:29 Consult PFS/PSA/Special Effects Artist complete. jl 16:29 Consult PFS/PSA/Special Effects Artist: Patient's case requires discussion with on-call jl Psychiatrist complete. 16:29 PSA/PFS to call Nursing Builder Beam, to [place] if patient jl involuntarily admitted or transferred for SI or HI complete. 12/28 15:18 T-Sheet-- Draft Copy was scanned into [employer] and attached to record. gb Signatures: Dispatcher [employer] EDMS Toyin Green, RN RN Adams Flores, PSA PSA jl Julissa Sherwood, Reg Reg gb Jerry Omalley, Reg Reg lg Davey Bueno, RN RN mlb1 Nadeem Allen MD MD br1 The chart was reviewed and I authenticate all verbal orders and agree with the evaluation and treatment provided.Attachments: 12/27 15:14 [facility] Payment Agreement lg 12/28 15:18 T-Sheet-- Draft Copy gb Chart Complete MTDD
--- NOTE | 2016-12-29 18:12 | EDDOCDS ---
Nurse's Notes [facility] Name: Kevin Morataya Age: 41 yrs Sex: Male : 1975 Arrival Date: 12/27/2016 Time: 12:48 Bed [facility] Private MD: NO PRIMARY PHYSICIAN, . Diagnosis: Post-traumatic stress disorder (PTSD) Presentation: 12/27 12:55 Presenting complaint: Patient states: "I want to kill myself". Mental Health Triage mlb1 Level: Level 2: The patient displays active suicidal ideations. Adult Sepsis Screening: The patient does not have new or worsening altered mentation. Patient's respiratory rate is less than 22. Systolic blood pressure is greater than 100. Patient has a qSOFA score of 0- Negative Sepsis Screen. 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 Transition of care: patient was not received from another setting of care. Red Flag criteria, patient assessed and taken directly to a bed. 12:55 Acuity: TAYLOR Level 3 mlb1 12:55 Method Of Arrival: Walkin/Carried/Asstd mlb1 12:57 Mental Health Triage Level: Level 2:. Suicide/Homicide risk assessment- The patient mlb1 admits to and/or has been reported to be having suicidal ideations. The patient reports that he/she has not been admitted to an inpatient mental health facility in the last 30 days. The patient reports that he/she does not have a recent or current history of substance abuse. The patient reports that he/she has a prior history of suicide attempt and/or organized plan. The patient reports that he/she has experienced a significant life altering event in the last 30 days. The patient reports that he/she has adequate social support. The patient reports he/she has no significant chronic medical condition(s). Triage Assessment: 12:57 General: Appears in no apparent distress, Behavior is cooperative, flat. Pain: Denies mlb1 pain. Pt Declines HIV testing. Historical: - Allergies: no known allergies; - Home Meds: 1. Prozac 40 mg Oral cap 1 cap once daily - PMHx: Depression; PTSD; - PSHx: none; - Social history: Smoking status: Patient uses tobacco products, heavy tobacco smoker. No barriers to communication noted, The patient speaks fluent Chinese, Speaks appropriately for age. - Family history: Not pertinent. - : The pt / caregiver states he / she is not on anticoagulants. Home medication list is obtained from the patient. - Exposure Risk Screening:: None identified. Screenin:04 Screening information is obtained from the patient. Fall risk: No risks identified. mcp Assistance ADL's: requires no assistance with activities of daily living. Abuse/DV Screen: The patient / caregiver reports he/she is: not in a situation that causes fear, pain or injury. Nutritional screening: No deficits noted. Advance Directives: Currently, there is no health care proxy. There is no active DNR order. home support is adequate. Assessment: 14:04 General: Appears in no apparent distress, comfortable, Behavior is cooperative. Pain: mcp Denies pain. Neurological: No deficits noted. Respiratory: Airway is patent Respiratory effort is even, unlabored. Derm: Skin is pink, warm & dry. 15:00 General: Appears in no apparent distress, comfortable, Behavior is cooperative. Pain: mcp Denies pain. Neurological: No deficits noted. Respiratory: Airway is patent Respiratory effort is even, unlabored. Derm: Skin is pink, warm & dry. 16:00 General: Appears in no apparent distress, comfortable, Behavior is cooperative. Pain: mcp Denies pain. Neurological: No deficits noted. Respiratory: Airway is patent Respiratory effort is even, unlabored. Derm: Skin is pink, warm & dry. 17:03 General: Appears in no apparent distress, comfortable, Behavior is cooperative. Pain: mcp Denies pain. Neurological: No deficits noted. Respiratory: Airway is patent Respiratory effort is even, unlabored. Derm: Skin is pink, warm & dry. Mental Health Eval: 14:36 Mental health consult is initiated at 13:30. Status: Patient states that he jl retired from the recently, following 20 years of service. [facility] Behavioral Health: The patient is not an established patient of [facility] Behavioral Health. Referral Information: Evaluation referral is generated by the patient himself / herself. The patient was referred for evaluation because of worsening sx of PTSD & depression, including SI with a plan. Subjective: The patients chief complaint is "I was going to kill myself". Delusions are denied. Patient's mood is both depressed & anxious. Hallucinations are denied. Patient reports having a long h/o depression & anxiety, with no treatment hx until just a couple of weeks ago. 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 Prior to his separation, he saw a psychiatrist for the first time. He admits that he has been depressed for "At least 3 or 4 years". He states that he was started on Prozac, although is yet to receive any benefit. He reports multiple deployments ([place], [place] & [place]) during his career & reports being dx with PTSD when he saw that psychiatrist. He relates experiencing significant anxiety, erratic sleep (sweats, nightmares, teeth grinding), erratic appetite, & was noted to display increased PMA during the interview. He admits that he had a plan for suicide that included taking Rx morphine pills that belong to his . He states that he lives with his . They have 2 children, ages 21 & 13. He states that it was the thought of his family that kept him from carrying out his plan. He denies h/o attempts or substance abuse. Mental Health history: Untreated depression, anxiety, sx of PTSD & sleep disturbance. Mental Health Admissions: None. Current Outpatient Mental Health Services: None. Current living environment is The patient currently lives with his family. Patient presents to Emergency Department with the following symptoms within the past 2 weeks: anxiety, erratic appetite depressed mood, sleep disturbance - erratic suicidal ideation with plan for pills. Substance abuse: Pt denies. Mental status exam: Patients appearance is appropriate, Patient's behavior is appropriate, with some increased psychomotor activity noted. Speech is unspontaneous Affect is restricted. Mood is anxious. depressed. Hallucinations are denied. Appetite is erratic Memory is good. Energy level is normal. Content of thought is normal. Thought process is intact. Cognitive level is oriented to person, place, time and situation Patient's insight is fair. Judgement is good. Rapport with interviewer is good. Suicidal Ideation present with a plan to kill self by pills. Homicidal ideation is denied. 15:43 Disposition: Medically cleared for disposition by Nadeem Allen MD Psychiatric Consult jl is performed by phone with Dr Brandi Phillips. [facility] Admission Criteria: The patient is experiencing suicidal ideation. The patient requires continuous observation and/or control to protect self, others or property. The patient's care requires a multi-modal treatment plan under close supervision and coordination due to the complexity and severity of the patient's symptoms. Legal Status: Patient's legal status will be Emergency admission: 9.39. DSM-V Differential Diagnosis: Major Depressive Disorder recurrent episode (F33.0) severe (F33.2) Posttraumatic Stress Disorder (F 43.10). Insurance Pre-Certification: Not Required. Vital Signs: 12:50 BP 122 / 67; Pulse 80; Resp 18 S; Temp 95.9(O); Pulse Ox 98% on R/A; Weight 85.28 kg gr2 (R); Height 69 in. (175.26 cm) (R); Pain 0/10; 17:04 BP 130 / 86; Pulse 83; Resp 18; Temp 97(O); Pulse Ox 96% on R/A; Pain 0/10; mcp 12:50 Body Mass Index 27.76 (85.28 kg, 175.26 cm) gr2 Vitals: 12:50 Log In Time: December 27, 2016 at 12:50. RN notified that patient meets Red Flag gr2 criteria. ED Course: 12:49 Patient visited by Jessica Iraheta. gr2 12:49 NO PRIMARY PHYSICIAN, . is Private Physician. gr2 12:49 Patient moved to Waiting gr2 12:53 Patient visited by Jessica Iraheta. gr2 12:55 Patient visited by Davey Bueno RN. mlb1 12:55 Triage Initiated mlb1 12:57 Patient visited by Davey Bueno RN. mlb1 12:57 Patient moved to [facility] mlb1 12:58 Patient visited by Davey Bueno RN. mlb1 13:00 Patient visited by Mathew Nguyen. rn1 13:09 Nadeem Allen MD is Attending Physician. br1 13:22 Patient visited by Mathew Nguyen. rn1 13:30 Patient visited by Mathew Nguyen. rn1 13:37 Patient visited by [place] PSA. jl 13:45 Patient visited by Mathew Nguyen. rn1 14:05 Patient visited by Toyin Green RN. mcp 14:05 The patient / caregiver is instructed regarding the plan of care and ED course. Patient mcp has correct armband on for positive identification. Placed in psych safe attire. Bed in low position. Call light in reach. 14:05 No IV's were initiated during this patient's visit. No procedures done that require mcp assistance. 14:06 Patient visited by Mathew Nguyen. rn1 14:18 Patient visited by Mathew Nguyen. rn1 14:30 Patient visited by Mathew Nguyen. rn1 14:36 Patient visited by Nadeem Allen MD. br1 14:45 Patient visited by Mathew Nguyen. rn1 15:00 Patient visited by Mathew Nguyen. rn1 15:11 Patient name changed from Kevin\\S\\G\\S\\Ray\\S\\ to Kevin\\S\\Nathan\\S\\Ray. EDMS 15:14 [facility] Payment Agreement was scanned into [employer] and attached to record. lg 15:15 Patient visited by Mathew Nguyen. rn1 15:36 Patient visited by Paula Richards PCA. rs6 15:50 Patient visited by Mathew Nguyen. rn1 15:50 Brandi Phillips is Hospitalizing Provider. br1 15:53 Patient visited by Paula Richards PCA. rs6 16:11 Patient visited by Paula Richards PCA. rs6 16:15 Pt greeted and oriented to ED. Patient advised of names of staff involved in care, rs6 location of call mayo, wait times and NPO status. Security observing. Cardiac monitoring not applicable on this patient. 16:15 Psych Safety Check: Location: Medical Room. Visual Assessment: Sleeping, Cooperative. rs6 16:26 Patient visited by Paula Richards PCA. rs6 16:29 [facility] Legal paperwork was scanned into [employer] and attached to record. jl 16:40 Patient visited by Paula Richards PCA. rs6 12/28 15:18 T-Sheet-- Draft Copy was scanned into [employer] and attached to record. gb Attachments: 16:29 [facility] Legal paperwork jl Order Results: Lab Order: Acetaminophen Level; SPEC'M 12/27/16 13:24 Test: ACETAMINOPHEN LEVEL; Value: < 2.0; Range: 10.0-30.0; Abnormal: Below low normal; Units: UG/ML; Status: F Lab Order: Basic Metabolic Profile; SPEC'M 12/27/16 13:24 Test: GLUCOSE, FASTING; Value: 93; Range: 70-105; Units: MG/DL; Status: F Test: BLOOD UREA NITROGEN; Value: 12; Range: 7-18; Units: MG/DL; Status: F Test: CREATININE FOR GFR; Value: 0.86; Range: 0.70-1.30; Units: MG/DL; Status: F Test: GLOMERULAR FILTRATION RATE; Value: > 60.0; Range: >60; Status: F Test: SODIUM LEVEL; Value: 140; Range: 136-145; Units: MEQ/L; Status: F Test: POTASSIUM SERUM; Value: 4.3; Range: 3.5-5.1; Units: MEQ/L; Status: F Test: CHLORIDE LEVEL; Value: 104; Range: 98-107; Units: MEQ/L; Status: F Test: CARBON DIOXIDE LEVEL; Value: 29; Range: 21-32; Units: MEQ/L; Status: F Test: ANION GAP; Value: 7; Range: 8-16; Abnormal: Below low normal; Units: MEQ/L; Status: F Test: CALCIUM LEVEL; Value: 9.2; Range: 8.5-10.1; Units: MG/DL; Status: F Test Note: ; Units are mL/min/1.73 m2 Chronic Kidney Disease Staging per NKF: Stage I & II GFR >=60 Normal to Mildly Decreased Stage III GFR 30-59 Moderately Decreased Stage IV GFR 15-29 Severely Decreased Stage V GFR <15 Very Little GFR Left ESRD GFR <15 on MARKETING SYSTEMS MANAGER Lab Order: Complete Blood Count; SPEC'M 12/27/16 13:24 Test: WHITE BLOOD COUNT; Value: 7.7; Range: 4.0-10.0; Units: K/mm3; Status: F Test: RED BLOOD COUNT; Value: 5.12; Range: 4.30-6.10; Units: M/mm3; Status: F Test: HEMOGLOBIN; Value: 15.4; Range: 14.0-18.0; Units: g/dl; Status: F Test: HEMATOCRIT; Value: 44.6; Range: 42.0-52.0; Units: %; Status: F Test: MEAN CORPUSCULAR VOLUME; Value: 87.2; Range: 80.0-96.0; Units: fl; Status: F Test: MEAN CORPUSCULAR HEMOGLOBIN; Value: 30.1; Range: 27.0-33.0; Units: pg; Status: F Test: MEAN CORPUSCULAR HGB CONC; Value: 34.5; Range: 32.0-36.5; Units: g/dl; Status: F Test: RED CELL DISTRIBUTION WIDTH; Value: 12.2; Range: 11.5-14.5; Units: %; Status: F Test: PLATELET COUNT, AUTOMATED; Value: 211; Range: 150-450; Units: k/mm3; Status: F Lab Order: Drug Eval Toxicology ED Only; SPEC'M 12/27/16 13:26 Test: AMPHETAMINES LEVEL URINE; Value: NEGATIVE; Range: NEGATIVE; Status: F Test: BARBITURATES URINE; Value: NEGATIVE; Range: NEGATIVE; Status: F Test: BENZODIAZEPINES URINE; Value: NEGATIVE; Range: NEGATIVE; Status: F Test: CANNABINOIDS URINE; Value: NEGATIVE; Range: NEGATIVE; Status: F Test: COCAINE METABOLITE URINE; Value: NEGATIVE; Range: NEGATIVE; Status: F Test: METHADONE URINE; Value: NEGATIVE; Range: NEGATIVE; Status: F Test: OPIATES URINE; Value: NEGATIVE; Range: NEGATIVE; Status: F Test: TRICYCLIC ANTIDEPRESS URINE; Value: NEGATIVE; Range: NEGATIVE; Status: F Test Note: ; ALL PRESUMPTIVE POSITIVE FINDINGS ARE UNCONFIRMED NORMAL VALUES THRESHOLD IN NG/ML AMPHETAMINES 1000 METHAMPHETAMINES 1000 BARBITURATES 300 BENZODIAZEPINES 300 CANNABINOIDS (THC) 50 COCAINE METABOLITE 300 METHADONE 300 OPIATES 300 PHENCYCLIDINE 25 TRICYCLIC ANTIDEPRESSANTS 1000 RESULTS ARE FOR MEDICAL PURPOSES ONLY. ALL URINE SPECIMENS WILL BE SAVED FOR 3 DAYS. IF CONFIRMATION OF A PRESUMPTIVE POSTIVE SCREEN RESULT IS DESIRED, CALL CHEMISTRY ([phone]) AND REQUEST URINE TO BE SENT TO REFERENCE LAB. FOR A LIST OF CLOSELY RELATED COMPOUNDS PLEASE CALL THE LAB. Lab Order: Ethyl Alcohol (ethanol); SPEC'M 12/27/16 13:24 Test: ETHYL ALCOHOL (ETHANOL); Value: < 0.003; Range: 0.000-0.010; Units: %; Status: F Lab Order: Liver Profile; SPEC'M 12/27/16 13:24 Test: AST/SGOT; Value: 15; Range: 15-37; Units: U/L; Status: F Test: ALT/SGPT; Value: 27; Range: 12-78; Units: U/L; Status: F Test: ALKALINE PHOSPHATASE; Value: 68; Range: 45-117; Units: U/L; Status: F Test: BILIRUBIN,TOTAL; Value: 0.3; Range: 0.2-1.0; Units: MG/DL; Status: F Test: BILIRUBIN,DIRECT; Value: < 0.1; Range: 0.0-0.2; Units: MG/DL; Status: F Test: TOTAL PROTEIN; Value: 7.0; Range: 6.4-8.2; Units: GM/DL; Status: F Test: ALBUMIN; Value: 4.0; Range: 3.2-5.2; Units: GM/DL; Status: F Test: ALBUMIN/GLOBULIN RATIO; Value: 1.33; Range: 1.00-1.93; Status: F Lab Order: Salicylate Level; SPEC'M 12/27/16 13:24 Test: SALICYLATE LEVEL; Value: 2.3; Range: 5.0-30.0; Abnormal: Below low normal; Units: MG/DL; Status: F Lab Order: Thyroid Stimulating Hormone; SPEC'M 12/27/16 13:24 Test: THYROID STIMULATING HORMONE; Value: 1.140; Range: 0.358-3.740; Units: uIU/ML; Status: F Outcome: 12/27 15:50 Decision to Hospitalize by Provider. br1 17:04 Discharge Assessment: patient administered narcotics - no. The following High Risk [facility] Discharge criteria are identified: None. Admitted to Psych accompanied by tech, via wheelchair, with chart. Condition: stable. No special radiology studies were completed. Property :Personal belongings accompany Pt. 17:11 Patient left the ED. [facility] Signatures: Dispatcher [employer] Toyin Serrano RN RN [facility] [place], PSA PSA jl Julissa Sherwood, Reg Reg gb Jerry Omalley, Reg Reg lg Davey Bueno RN RN mlb1 Nadeem Allen MD MD br1 Jessica Iraheta gr2 Paula Richards, NIDA LASTEX THREAD WINDER rs6 Mathew Nguyen rn1 Corrections: (The following items were deleted from the chart) 12:58 12:55 Suicide/Homicide risk assessment- the patient denies having any suicidal and/or mlb1 homicidal ideations and does not present with any other emotional, behavioral or mental health complaints mlb1 Chart Complete MTDD
[2016-12-29] MEDS: traZODone 50 MG TAB PO SCH (21:02)
[2016-12-30 06:15] VITALS: BP 137/69
[2016-12-30] MEDS: NICOTINE 21MG/24HR 1 EA TRANSDERMAL TD SCH (08:28)
[2016-12-30] MEDS: OSELTAMIVIR PHOSPHATE 75 MG CAP (TAMIFLU) PO SCH (08:28)
[2016-12-30] MEDS: FLUoxetine 20 MG CAP PO SCH (08:29)
[2016-12-30 18:32] VITALS: BP 114/64
[2016-12-30] MEDS: traZODone 50 MG TAB PO SCH (22:05)
[2016-12-31 06:31] VITALS: BP 121/70
--- NOTE | 2016-12-31 07:34 | IPN ---
DATE: 12/30/2016 CHIEF COMPLAINT: Says feeling better. SUBJECTIVE: Seen for followup, in the presence of staff. He says things are considerably better, and that he is feeling better overall, particularly after he has had good sleep. Says that has made a distinct difference to his mood, feels more rested. Says his appetite and concentration are good. MENTAL STATUS EXAMINATION: Neat, cooperative, coherent. No agitation. No psychomotor retardation. Affect is broad. He denies any thoughts of harming himself or anyone else. Currently, there is no evidence of any psychosis. His cognition is grossly intact. His judgment is good, most likely improved, as is insight. ASSESSMENT: Major depressive disorder. Posttraumatic stress disorder. PLAN: He is to continue with current care, which includes Prozac at 40 mg daily. He is to be encouraged to participate in activities in the unit. Further recommendations will be made depending on the clinical picture. VITAL SIGNS: Blood pressure 137/69, pulse 76, temperature 96.5.
[2016-12-31] MEDS: OSELTAMIVIR PHOSPHATE 75 MG CAP (TAMIFLU) PO SCH (08:32)
[2016-12-31] MEDS: FLUoxetine 20 MG CAP PO SCH (08:32)
[2016-12-31] MEDS: NICOTINE 21MG/24HR 1 EA TRANSDERMAL TD SCH (08:33)
[2016-12-31 18:00] VITALS: BP 110/68
[2016-12-31] MEDS: traZODone 50 MG TAB PO SCH (22:18)
[2017-01-01 06:00] VITALS: BP 122/82
--- NOTE | 2017-01-01 07:54 | IPN ---
DATE: 12/31/2016 CHIEF COMPLAINT: Says feels good. SUBJECTIVE: Seen for followup. Indicates feels good, moods have been good, feels ready to go home. Says has slept well, and again suggests that that has helped to improve his mood. MENTAL STATUS EXAMINATION: Neat and cooperative, no agitation. He is coherent. Affect reactive, fairly broad. No evidence of any thoughts of harming himself or anyone else, nor of any psychosis. Cognition grossly intact. Judgment good. Insight is improved. ASSESSMENT: Major depressive disorder. Posttraumatic stress disorder. PLAN: Continue current care and observations, and he will be seeing the treatment team tomorrow. I would anticipate discharge soon.
[2017-01-01] MEDS: NICOTINE 21MG/24HR 1 EA TRANSDERMAL TD SCH (08:27)
[2017-01-01] MEDS: OSELTAMIVIR PHOSPHATE 75 MG CAP (TAMIFLU) PO SCH (08:28)
[2017-01-01] MEDS: FLUoxetine 20 MG CAP PO SCH (08:28)
--- NOTE | 2017-01-01 15:23 | IPNPDOC ---
[facility] Progress Note Progress Note DATE OF SERVICE: 01/01/17 HISTORY: Mr. Morataya is a 41-year-old male with a history of depression and anxiety. 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 Prior to his discharge he was diagnosed with depression and PTSD. 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 He never sought help due to "the way you are looked in the if you are going to the doctor." He reports low energy, feeling tired all the time, isolating, poor self-esteem, fluctuating appetite, and episodes of suicidal thoughts of which had prompted him to come to the emergency department. He states these disorders are impairing his quality of life as he isolates himself and is "always on edge." He admits to "looking at people different" and "always placing myself on Defense." He states that he has periods of high energy and hyper activation that'll last approximately one day and allow him to "get close to my family." VITAL SIGNS: See below. CURRENT MEDICATIONS: - Trazodone 50 mg by mouth daily at bedtime - Trazodone 50 mg by mouth daily at bedtime when necessary repeat 1 in 1 hour if no result - Prozac 40 mg by mouth every morning SUBJECTIVE: "I'm improving, and feel more rested. The depression is improving." OBJECTIVE: He states that over his stay here he has improved greatly. He admits to sleeping much better and having no issues waking up in the night diaphoretic or from nightmares, he states that he is no longer grinding his teeth. He continues to improve and states that his depression is a 3-4/10. His energy has continued to improve as well as his mood and states that this is unlike previous periods of high energy and hyper activation. He states his excitement for spending time with his son as well as helping his around the home when he is discharged. He is energized and shows interest in outpatient follow-up at [place] as well as a PTSD program for veterans. He is continued to attend groups , denies issues with sleeping or eating, or any medication side effects. MENTAL STATUS EXAMINATION: Patient is Well-groomed and dressed in home clothing. He sits for the entirety of the interview. He maintains good eye contact, he is cooperative and open. He is alert and oriented 3. He talks spontaneously at a normal rate and soft tone with appropriate inflections. He states that his mood is energized, with mild depression. He has a bright affect which is insistent with his mood. He continues to have linear goal-directed thought processes. He denies delusions or hallucinations. He is able to contract for safety on the unit. His insight and judgment are improving. His attention is appropriate. His recent, remote, and immediate memory are intact. His intellectual functioning remains fair. ASSESSMENT: 1. Major depressive disorder 2. Posttraumatic stress disorder (PTSD) MANAGEMENT PLAN: 1. Continue trazodone 50 mg by mouth daily at bedtime. 2. Continue trazodone 50 mg by mouth daily at bedtime when necessary repeat 1 in 1 out of no result. 3. Continue Prozac 40 mg by mouth every morning. 4. Continue medication management along with individual and group therapies. Vital Signs Vital Signs Date Time Temp Pulse Resp B/P Pulse Ox O2 Delivery O2 Flow Rate FiO2 01/01/17 06:00 97.1 78 17 122/82 Current Medications Current Medications Acetaminophen (Tylenol Tab) 650 mg Q6HP PRN PO HEADACHE or DISCOMFORT Last administered on 12/28/16 08:56; Start 12/27/16 at 18:15; Stop 01/26/17 at 18:14 Al Hydrox/Mg Hydrox/Simethicone (Mylanta) 30 ml Q4HP PRN PO HEARTBURN/ INDIGESTION; Start 12/27/16 at 18:15; Stop 01/26/17 at 18:14 Fluoxetine HCl (PROzac) 40 mg QAM PO Last administered on 01/01/17 08:28; Start 12/28/16 at 09:00; Stop 01/27/17 at 08:59 Home Med (Med Rec Complete!) ASDIRECTED XX ; Start 12/27/16 at 16:00; Stop at 16:00; Status DC Magnesium Hydroxide (Milk Of Magnesia) 30 ml DAILYPRN PRN PO CONSTIPATION; Start 12/27/16 at 18:15; Stop 01/26/17 at 18:14 Nicotine (Nicoderm Cq 21mg) 1 patch DAILY TD Last administered on 01/01/17 08: 27; Start 12/27/16 at 19:00; Stop 01/26/17 at 18:59 Oseltamivir Phosphate (Tamiflu) 75 mg DAILY PO Last administered on 01/01/17 08:28; Start 12/29/16 at 09:00; Stop 01/08/17 at 08:59 Trazodone HCl (Desyrel) 50 mg QHS PO Last administered on 12/31/16 22:18; Start 12/28/16 at 21:00; Stop 01/27/17 at 20:59 Trazodone HCl (Desyrel) 50 mg QHSP PRN PO INSOMNIA Last administered on 20:54; Start 12/27/16 at 18:15; Stop 12/28/16 at 10:58; Status DC Trazodone HCl (Desyrel) 50 mg QHSP PRN PO repeat x 1 in 1 h if no result; Start 12/28/16 at 11:15; Stop 01/27/17 at 11:14 Allergies Coded Allergies: No Known Allergies (Unverified , 12/27/16) GME ATTESTATION GME ATTESTATION My preceptor for this patient encounter was Dr. Knox, he was physically present in the building during the encounter and was fully available. As needed , all aspects of the patient interview, examination, medical decision making process, and medical care plan development were reviewed and approved by the preceptor. Preceptor is aware and concurs with the plan as stated in the body of this note and will attest to such by his/her cosignature. DALTON HALL Jan 01, 2017 15:23
[2017-01-01 18:00] VITALS: BP 123/59
[2017-01-01] MEDS: traZODone 50 MG TAB PO SCH (21:57)
[2017-01-02 07:09] VITALS: BP 107/67
[2017-01-02] MEDS: NICOTINE 21MG/24HR 1 EA TRANSDERMAL TD SCH (08:08)
[2017-01-02] MEDS: OSELTAMIVIR PHOSPHATE 75 MG CAP (TAMIFLU) PO SCH (08:09)
[2017-01-02] MEDS: FLUoxetine 20 MG CAP PO SCH (08:09)
[2017-01-02] MEDS ORDERED: OSEL75CA PO (08:37)
[2017-01-02] MEDS ORDERED: NICO21PAT TD (08:37)
[2017-01-02] MEDS ORDERED: FLUO20CA9 PO (10:08)
[2017-01-02] MEDS ORDERED: TRAZO50TA PO (10:08)
--- NOTE | 2017-01-03 08:58 | MHDS ---
DATE OF ADMISSION: 12/27/2016 DATE OF DISCHARGE: 01/02/2017 LEGAL STATUS AT ADMISSION: 9.39 legal status. HISTORY OF PRESENT ILLNESS: 41-year-old male with history of depression, anxiety and post traumatic stress disorder (PTSD) admitted to our unit on a 9.39 legal status. 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 He retired in May 2016. Before he was discharged, the patient went to see a psychiatrist and went through the differential diagnoses. At that time, he was diagnosed of depression and PTSD. The patient reported that he had a total of 5 deployments during his career. The patient stated that for a period of four years he was more in [place] than at home. He said that he went through very rough deployments at that time. The patient never went to see a psychiatrist because this was not well seen by his peers. He made the statement, "because the way you are looked at in the if you are going to the doctor". The patient also reported symptoms of depression with low energy, feeling tired all the time, isolating, "I don't talk", poor self esteem, sleeping two to three hours, and before admission suicidal thoughts that prompted him to come to the emergency department (ED). The patient states that his PTSD symptoms are impairing his quality of life and that he isolates and he does not interact with other people, that he feels numb, and "always on the edge". "I place myself always at the defense", "looking at people different". The patient denies flashbacks, but reports frequent nightmares and "smells" that brings in memories of the traumatic events. During the interview today, the patient was calm and cooperative. There was no evidence of psychotic symptoms. No auditory or visual hallucinations or delusions. The patient reported that since he has been placed on Prozac he had an episode of hyperactivation in which for approximately one day he feels more energetic, like "cleaning the house". After this very short lived episode, he returns to his normal mode, but he appreciates these episodes because "I am getting close to my family". At admission, CBC was unremarkable. CMP within normal limits. TSH within normal limits. UDS negative. Blood alcohol level negative. HOSPITAL COURSE: After the first evaluation, the patient was placed on Prozac 40 mg by mouth daily and trazodone 50 mg at bedtime was started. This last medication was very helpful to the patient because it allowed him to sleep all through the night and he stated that the sleep deprivation was a factor that contributed the worsening of the symptoms. After 48 hours of being in the unit and taking the medication, the patient started to improve steadily. The patient was more outgoing, interacting with other patients and staff and the patient was denying any problems with sleep with the help of the trazodone. The patient was also denying any nightmares. He was motivated for treatment. By the end of the hospitalization, the patient is significantly improved. Before discharge, the patient denied suicidal or homicidal ideation. There is no evidence of psychotic symptoms. No auditory or visual hallucination. A family meeting was scheduled, but his called and said that she was not going to be able to make it. The supply chain planner talked to the patient's . She is very supportive. So he was discharged on 01/02/2017. MEDICATIONS AT DISCHARGE: - trazodone 50 mg by mouth at bedtime - Prozac 40 mg by mouth every morning MENTAL STATUS EXAMINATION AT DISCHARGE: The patient is dressed in casual clothes. The patient is calm and cooperative. Speech is clear, coherent with normal rate and is spontaneous. The patient has good eye contact. Mood is euthymic, affect is appropriate and congruent with mood. The patient is oriented to time, place, person and situation. Maintains attention and concentration correctly. Install recall, recent and remote memory are intact. Thought processes are chronological and goal directed. The patient does not have auditory or visual hallucinations. The patient does not have paranoid, persecutory, somatic, grandiose or faith delusion. The patient denies suicidal or homicidal ideation. Judgment and insight are fair. DISCHARGE DIAGNOSES: AXIS I: Major depressive disorder. Post traumatic stress disorder. AXIS II: Deferred. AXIS III: None acute. INSTRUCTIONS FOR THE PATIENT: The patient is to continue taking his medications as prescribed and followup appointments. He is advised to maintain absolute sobriety from drugs and alcohol. The patient has scheduled appointments for psychiatric medication management, individual psychotherapy and primary care physician.
== END 2017-01-02 14:13 | disposition home or self-care (01) | DRG 881 ==
LOC: M ED 12:48 → M PSY 17:20
PROVIDERS: ADMIT Psychiatry & Neurology Psychiatry; ATTEND Psychiatry & Neurology Psychiatry
DX: F32.9 Major depressive disorder, single episode, unspecified (principal); F43.10 Post-traumatic stress disorder, unspecified; F17.200 Nicotine dependence, unspecified, uncomplicated

== ENCOUNTER 2017-05-03 04:12 | Inpatient (IN) | payer OTHER ==
[~2017-05-03] VITALS: Ht 175.3 cm; Wt 93.8 kg
[~2017-05-03 04:12] MED LIST: FLUO20CA9 PO; NICO21PAT TD; OSEL75CA PO; PROZ40CA PO; TRAZO50TA PO
[2017-05-03 05:51] LABS: MEAN CORPUSCULAR HGB CONC 34.7 g/dl (32.0-36.5); MEAN CORPUSCULAR VOLUME 89.3 fl (80.0-96.0); RED CELL DISTRIBUTION WIDTH 12.3 % (11.5-14.5); WHITE BLOOD COUNT 9.8 K/mm3 (4.0-10.0)
[2017-05-03 06:13] LABS: METHADONE URINE NEGATIVE (NEGATIVE)
[2017-05-03 06:25] LABS: ALBUMIN 4.2 GM/DL (3.2-5.2); ALBUMIN/GLOBULIN RATIO 1.27 (1.00-1.93); ALKALINE PHOSPHATASE 75 U/L (45-117); ALT/SGPT 28 U/L (12-78); ANION GAP 7 MEQ/L (8-16); AST/SGOT 21 U/L (15-37); BILIRUBIN,DIRECT < 0.1 MG/DL (0.0-0.2); BILIRUBIN,TOTAL 0.5 MG/DL (0.2-1.0); BLOOD UREA NITROGEN 7 MG/DL (7-18); CALCIUM LEVEL 8.5 MG/DL (8.5-10.1); CARBON DIOXIDE LEVEL 29 MEQ/L (21-32); CHLORIDE LEVEL 100 MEQ/L (98-107); CREATININE FOR GFR 0.79 MG/DL (0.70-1.30); GLOMERULAR FILTRATION RATE > 60.0 (>60); GLUCOSE, FASTING 86 MG/DL (70-105); POTASSIUM SERUM 3.8 MEQ/L (3.5-5.1); SODIUM LEVEL 136 MEQ/L (136-145); TOTAL PROTEIN 7.5 GM/DL (6.4-8.2)
[2017-05-03] MEDS ORDERED: VITA100072 PO (12:43)
[2017-05-03] MEDS ORDERED: FISH100049 PO (12:43)
[2017-05-03] MEDS ORDERED: VITA-121 PO (12:43)
[2017-05-03 13:05] VITALS: BP 125/83
[2017-05-03] MEDS ORDERED: MAALOX 30 ML SUSP *UDC PO PRN (15:00)
[2017-05-03] MEDS ORDERED: ACETAMINOPHEN TAB 650MG DOSE (2X325MG) PO PRN (15:00)
[2017-05-03] MEDS ORDERED: MOM 30ML SUSPENSION UDC PO PRN (15:00)
[2017-05-03] MEDS: FLUoxetine 20 MG CAP PO SCH (16:21)
[2017-05-03] MEDS: CYANOCOBALAMIN 500 MCG TAB PO SCH (16:21)
[2017-05-03] MEDS: NICOTINE 21MG/24HR 1 EA TRANSDERMAL TD SCH (17:10)
[2017-05-04 06:00] VITALS: BP 120/82
[2017-05-04] MEDS: CYANOCOBALAMIN 500 MCG TAB PO SCH (08:17)
[2017-05-04] MEDS: NICOTINE 21MG/24HR 1 EA TRANSDERMAL TD SCH (08:17)
[2017-05-04] MEDS: FLUoxetine 20 MG CAP PO SCH (08:18)
[2017-05-04 09:06] VITALS: BP 120/82
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
--- NOTE | 2017-05-04 13:29 | HPEPDOC ---
Medical History and Physical Date of Admission May 03, 2017 at 12:01 History and Physical PCP: Ken ATTENDING: Dr. Raheem Wild HPI: 41yoM admitted to [facility] for depressive disorder, being medically examined today. No acute medical complaints today. Denies any fevers, chills, weakness, fatigue, GARCIA, CP, SOB, cough, palpitations, abdominal pain, N/V/D or changes in bowel or bladder habits. PMHx: Depression PTSD PSHX: Vasectomy SOCHX: Resides in: [place], from [place]. Marital Status: Kids: 2 Employment: Recently retired from [employer] Tobacco use: Less than one pack per day ETOH: 6 drinks per week Illicit Drugs: Denies IV Drug Use: Denies Tattoos done unprofessionally: Denies FAMHX: Mother: Alive, well Father: Alive, well Siblings: 2 brothers Alive, well Children: Alive, well Unexpected deaths due to medical reasons: None. ROS: As noted in HPI, otherwise 11pt ROS of systems reviewed and unremarkable PE: GEN: 41yoM, appears stated age. Well-nourished, well developed. No acute distress. Alert and oriented x 3. Pleasant, interactive. HEENT: Normocephalic, atraumatic. Pupils are equal, round, and reactive to light. Extraocular movements are intact. No nystagmus appreciated. Sclera are nonicteric. Conjunctiva without injection. Nose midline. Nasal turbinates without bogginess. EACs both patent BL. TMs both visualized and mauro with good cone of light, no bulging or erythema. No facial asymmetry. Moist mucous membranes. Dentition fair. Pharynx pink and moist, no cobblestoning. Neck supple , trachea midline. No lymphadenopathy or thyromegaly appreciated. CHEST: Regular rate and rhythm, +S1, +S2 LUNGS: Clear to auscultation bilaterally. No wheezes, rales, or rhonchi. Breathing appears symmetric and easy. Patient is speaking in full sentences. No accessory muscle use. ABD: Round, soft, non-tender, non-distended. +Bowel sounds throughout. No rebound or guarding. No costovertebral angle tenderness. EXT: Pulses 2+ bilaterally dorsalis pedis and radial. No lower extremity edema appreciated. SKIN: Wright, dry, warm. Capillary refill <2sec. No rashes. NEURO: Alert and oriented x 3. Cranial nerves III-XII are intact. No focal deficits appreciated. EKG: pending. A&P: 41yoM admitted to [facility] for depressive disorder 1. Psych. Plan per Psychiatry. Obtain baseline EKG to assure the safety of psychiatric medications as they can prolong the QT interval. 2. Nicotine dependence. Patch available. 3. Follow up. No Primary Care Provider. Will attempt to establish PCP on discharge. 4. Staff member present throughout exam,Amrita VASQUEZ Vital Signs Vital Signs Date Time Temp Pulse Resp B/P (MAP) Pulse Ox O2 Delivery O2 Flow Rate FiO2 05/04/17 09:06 98.4 83 18 120/82 97 Room Air Laboratory Data Labs 24H Item Value Date Time White Blood Count 9.8 K/mm3 05/03/17 05 Red Blood Count 5.23 M/mm3 05/03/17 0538 Hemoglobin 16.2 g/dl 05/03/17 0538 Hematocrit 46.7 % 05/03/17 0538 Mean Corpuscular Volume 89.3 fl 05/03/17 0538 Mean Corpuscular Hemoglobin 31.0 pg 05/03/17 0538 Mean Corpuscular Hemoglobin Concent 34.7 g/dl 05/03/17 0538 Red Cell Distribution Width 12.3 % 05/03/17 05 Platelet Count 207 k/mm3 05/03/17 0538 Sodium Level 136 MEQ/L 05/03/17 0538 Potassium Level 3.8 MEQ/L 05/03/17 0538 Chloride Level 100 MEQ/L 05/03/17 0538 Carbon Dioxide Level 29 MEQ/L 05/03/17 0538 Anion Gap 7 MEQ/L L 05/03/17 0538 Blood Urea Nitrogen 7 MG/DL 05/03/17 0538 Creatinine 0.79 MG/DL 05/03/17 0538 Glomerular Filtration Rate > 60.0 05/03/17 05 Fasting Glucose 86 MG/DL 05/03/17 0538 Calcium Level 8.5 MG/DL 05/03/17 0538 Total Bilirubin 0.5 MG/DL 05/03/17 0538 Direct Bilirubin < 0.1 MG/DL 05/03/17 0538 Aspartate Amino Transf (AST/SGOT) 21 U/L 05/03/17 0538 Alanine Aminotransferase (ALT/SGPT) 28 U/L 05/03/17537 Alkaline Phosphatase 75 U/L 05/03/17537 Total Protein 7.5 GM/DL 05/03/17537 Albumin 4.2 GM/DL 05/03/17537 Albumin/Globulin Ratio 1.27 05/03/17537 Thyroid Stimulating Hormone (TSH) 0.694 uIU/ML 05/03/17537 Salicylates Level < 1.7 MG/DL L 05/03/17537 Urine Opiates Screen NEGATIVE 05/03/17537 Urine Methadone Screen NEGATIVE 05/03/17537 Acetaminophen Level < 2.0 UG/ML L 05/03/17537 Urine Barbiturates Screen NEGATIVE 05/03/17537 Urine Phencyclidine Screen NEGATIVE 05/03/17537 Urine Amphetamines Screen NEGATIVE 05/03/17537 Urine Benzodiazepines Screen NEGATIVE 05/03/17537 Urine Cocaine Metabolite Screen NEGATIVE 05/03/17537 Urine Cannabinoids Screen NEGATIVE 05/03/17537 Ethyl Alcohol Level 0.150 % H 05/03/17537 Home Medications Scheduled Cholecalciferol (Vitamin D-3) 1,000 Unit Tab, 1,000 UNIT PO DAILY Cyanocobalamin (Vitamin B12) 1,000 Mcg Tab, 1,000 MCG PO DAILY Fish Oil (Fish Oil 1000 mg) 1 Cap Cap, 1 CAP PO DAILY Fluoxetine Hcl (Fluoxetine HCl) 20 Mg Cap, 40 MG PO QAM for DEPRESSION Trazodone HCl (Trazodone HCl) 50 Mg Tab, 50 MG PO QHS for INSOMNIA Allergies Coded Allergies: No Known Allergies (Unverified , 12/27/16) Lalita Chapman May 04, 2017 13:29
[2017-05-04 18:00] VITALS: BP 123/64
[2017-05-04] MEDS: traZODone 50 MG TAB PO PRN (22:33)
[2017-05-05 06:37] VITALS: BP 134/73
--- NOTE | 2017-05-05 08:55 | ECGEPIP ---
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
[2017-05-05] MEDS: FLUoxetine 20 MG CAP PO SCH (09:21)
[2017-05-05] MEDS: CYANOCOBALAMIN 500 MCG TAB PO SCH (09:21)
[2017-05-05] MEDS: NICOTINE 21MG/24HR 1 EA TRANSDERMAL TD SCH (09:21)
[2017-05-05 18:33] VITALS: BP 110/60
[2017-05-05] MEDS: traZODone 50 MG TAB PO PRN (22:30)
[2017-05-06 06:21] VITALS: BP 153/88
--- NOTE | 2017-05-06 08:06 | IPN ---
DATE OF SERVICE: 05/05/2017 SUBJECTIVE: "I'm feeling better." OBJECTIVE: Patient is improving slowly. Is able to smile. No psychomotor retardation. Interacts with other patients and staff. No psychotic symptoms. No auditory or visual hallucinations or delusions. Denies side effect from the medications. He is motivated for treatment. MENTAL STATUS EXAMINATION: Patient is dressed in [facility]. Patient is cooperative during exam. Has fair eye contact. Speech is normal in rate, volume, articulation, is coherent and is spontaneous. Mood is depressed but improving. Affect is congruent with mood. No evidence of delusions or hallucinations. Memory, attention and concentration are fair. Patient is able to contract for safety during his hospitalization. Insight and judgment is fair. ASSESSMENT: 1. Depression. 2. Suicidal ideation. 3. Posttraumatic stress disorder (PTSD). 4. Substance abuse. PLAN: 1. Continue with Prozac 40 mg by mouth every morning. 2. Continue with trazodone 50 mg as needed for insomnia. 3. Continue medication management, individual and group therapy. [facility]
[2017-05-06] MEDS: CYANOCOBALAMIN 500 MCG TAB PO SCH (08:30)
[2017-05-06] MEDS: NICOTINE 21MG/24HR 1 EA TRANSDERMAL TD SCH (08:30)
[2017-05-06] MEDS: FLUoxetine 20 MG CAP PO SCH (08:30)
[2017-05-06 18:00] VITALS: BP 130/62
--- NOTE | 2017-05-06 18:30 | IPN ---
DATE: 05/06/2017 SUBJECTIVE: "I'm improving." OBJECTIVE: Patient continues to improve. Patient is able to contract for safety and denies suicidal or homicidal ideation during the interview. Denies side effect from the medication. Is motivated for treatment. No psychomotor retardation. Facial expression has improved. MENTAL STATUS EXAMINATION: Patient is dressed in [facility]. Patient is cooperative during the exam, has fair eye contact. His speech is normal in rate, volume, articulation, is coherent and is spontaneous. Mood is depressed but improving. Affect is congruent with mood. No evidence of delusions or hallucinations. Memory, attention, and concentration are fair. Patient is able to contract for safety during his hospitalization. Insight and judgment is fair. ASSESSMENT: 1. Depression. 2. Suicidal ideation. 3. Posttraumatic stress disorder (PTSD). 4. Substance abuse. PLAN: 1. Continue with Prozac 40 mg by mouth every morning. 2. Continue with trazodone 50 mg by mouth nightly as needed for insomnia. 3. Continue medication management, individual and group therapy.
[2017-05-06] MEDS: traZODone 50 MG TAB PO PRN (22:53)
[2017-05-07 07:22] VITALS: BP 135/65
[2017-05-07] MEDS: FLUoxetine 20 MG CAP PO SCH (08:58)
[2017-05-07] MEDS: CYANOCOBALAMIN 500 MCG TAB PO SCH (08:58)
[2017-05-07] MEDS: NICOTINE 21MG/24HR 1 EA TRANSDERMAL TD SCH (08:58)
[2017-05-07 18:00] VITALS: BP 113/63
--- NOTE | 2017-05-07 21:30 | IPN ---
DATE: 05/07/2017 SUBJECTIVE: "I am feeling much better." OBJECTIVE: The patient continues improving, says that he is very aware of how alcohol plays into his mood swings and suicidal thoughts. We discussed the treatment plan and some of the chemical dependency issues, along with how posttraumatic stress disorder (PTSD), depression, mood swings and alcohol abuse can have an impact on his quality of life. MENTAL STATUS EXAMINATION: The patient is dressed in [facility]. The patient is cooperative during the examination. Has fair eye contact. Speech is normal in rate, volume, and articulation. Is coherent and is spontaneous. Mood is depressed, but improved. Affect is congruent with mood. No evidence of delusions or hallucinations. The patient is able to contract for safety during his hospitalization. Insight and judgment are fair. ASSESSMENT: 1. Depression. 2. Suicidal ideation. 3. Posttraumatic stress disorder (PTSD). 4. Alcohol abuse. PLAN: 1. Continue with Prozac 40 mg by mouth in the morning. 2. Continue with trazodone as needed for insomnia. 3. Continue medication management, individual and group therapy.
[2017-05-07] MEDS: traZODone 50 MG TAB PO PRN (21:51)
[2017-05-07] MEDS: hydrOXYzine 25 MG TAB PO PRN (21:51)
[2017-05-08 06:41] VITALS: BP 140/63
[2017-05-08] MEDS: CYANOCOBALAMIN 500 MCG TAB PO SCH (09:12)
[2017-05-08] MEDS: NICOTINE 21MG/24HR 1 EA TRANSDERMAL TD SCH (09:12)
[2017-05-08] MEDS: FLUoxetine 20 MG CAP PO SCH (09:12)
--- NOTE | 2017-05-08 11:01 | MHIPNPDOC ---
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 Patient was hospitalized from 12/27 - 01/02/17 due to depression, PTSD, and suicidal ideation. Just prior to current hospitalization, patient was brought to the emergency department by MPs who indicated patient's called due to telling his is going to kill himself, making suicidal gestures, and informing that she and children would be better off without him. 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 Miner Operator met with patient today to assess treatment progress on inpatient unit. Patient reports anxiety level of 1/10, denies depression, denies suicidal and homicidal ideation, denies auditory and visual hallucinations, denies urge to engage in self-injurious behavior. Patient indicates he has been taking trazodone and states he has been sleeping better and denies nightmares or symptoms. Patient also utilized hydroxyzine yesterday evening to address intermittent symptoms of anxiety with good effect reported. Patient states he is now sleeping approximately 6-6.5 hours per night and reports improvement to symptoms. Patient indicates Prozac continues to work well and he denies medication side effects, continues to deny need for dosing adjustment. Patient expresses some insight today with regard to her use of alcohol and behavior and events which preceded current hospitalization, agrees that he could benefit from substance abuse treatment. Patient inquires today as to discharge, informs radio news writer he is willing to participate in substance abuse treatment and to continue with treatment at [facility], also states he is prepared to begin [facility] whenever he is accepted to the program. Patient presents with no signs of acute distress at time of interaction. PAST MEDICAL/SURGICAL HISTORY: Vasectomy, inguinal hernia, chronic back pain, micro-tears to shoulders, shrapnel and face, bilateral hearing loss, multiple head injuries with loss of consciousness 4 for unknown duration. Patient denies history of seizure Labs on admission indicate low anion gap UDS negative, EtOH 0.150 05/04/17 EKG Normal sinus rhythm Normal EKG Comparison tracing not available VITAL SIGNS: B/P 120/82, P 83, R 18, T 98.4. 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 Patient is hearing impaired. Speech: Of normal rate, rhythm, volume, spontaneous, coherent, patient is hearing impaired Thought processes: Linear, logical, goal-directed Thought content: Rational, logical, no tangentiality or paranoia noted Abstract reasoning and computation: Appears within normal limits Description of associations: Intact Description of abnormal or psychotic thoughts: Patient denies suicidal or homicidal ideation, denies auditory or visual hallucinations, does not appear to be responding to internal stimuli, does not endorse bizarre or paranoid ideation, and denies preoccupation with violence or obsessions Judgment: Fair, some improvement noted Insight: Fair, some improvement noted Orientation: A and O 3 Recent and remote memory: Requires further evaluation, appears generally intact with exception of events which preceded current hospitalization Attention span and concentration: Appear intact Fund of knowledge: Appears adequate Mood: "I feel pretty good, and I feel like I'm ready to start at [facility]." Patient denies depression, appears less anxious, no mood lability noted at time of interaction Affect: Blunted but brightens, congruent with mood DIAGNOSES: Major depressive disorder, PTSD, alcohol use disorder, adjustment disorder, TBI ASSESSMENT: Patient seems to be adjusting to unit well, is visible, easily engaged, is interacting with peers, is pleasant and cooperative with staff, and is participating in unit programming. Patient indicates medication regimen he has been taking an outpatient environment remains effective, denies need for dosing adjustment, has been utilizing trazodone and reports improved sleep, has also utilized Atarax 1 for intermittent anxiety and indicates medication was effective. Patient is denying medication side effects and denies need for Damaris act dosing adjustment. Patient is no longer minimizing the seriousness of his alcohol use and the events and behavior which led to current hospitalization. Patient verbalizes motivation for participating in [facility] and substance abuse treatment, states he also wants to return for treatment at [facility]. Patient is no longer minimizing 's concerns and states he wants to work toward strengthening their relationship and improving his physical and emotional health. Patient denies current suicidal or homicidal ideation and verbalizes awareness of how to access supportive services on the unit if needed. Will continue to monitor patient's response to medication and monitor for side effects, will evaluate need for medication dosing adjustment or change. Will also monitor patient safety and discharge readiness. Patient states [place] [facility] is in process of referring him to the [facility] program and casting coordinator continues to communicate with Cj Virk as to [facility] start date in effort to coordinate safe discharge plan. Patient states when prepared for discharge he plans to return home with , resume treatment through [facility], participate in outpatient substance abuse treatment, participate in psychotherapy and medication management, and participate in [facility] program. MANAGEMENT PLAN: Continue Prozac 40 mg po q day, trazodone 50 mg po hs PRN insomnia, and Atarax 25 mg po q 4 hours PRN anxiety/agitation Maintain safety precautions Patient to attend groups and participate in unit programming to develop coping strategies Engage patient in discharge planning process and arrange meeting with command to evaluate safe discharge planning when appropriate Patient to follow up with Cj Virk PCM upon discharge TIME SPENT: 35 minutes Vital Signs Vital Signs Date Time Temp Pulse Resp B/P (MAP) Pulse Ox O2 Delivery O2 Flow Rate FiO2 05/08/17 06:41 98.5 82 16 140/63 (88) 05/04/17 09:06 97 Room Air Current Medications Current Medications Acetaminophen (Tylenol Tab) 650 mg Q6HP PRN PO HEADACHE or DISCOMFORT; Start at 15:00; Stop 06/02/17 at 14:59 Al Hydrox/Mg Hydrox/Simethicone (Mylanta) 30 ml Q4HP PRN PO HEARTBURN/ INDIGESTION; Start 05/03/17 at 15:00; Stop 06/02/17 at 14:59 Cyanocobalamin (Vitamin B12) 1,000 mcg DAILY PO Last administered on 05/08/17 09:12; Start 05/03/17 at 09:00; Stop 06/02/17 at 08:59 Fluoxetine HCl (PROzac) 40 mg DAILY PO Last administered on 05/08/17 09:12; Start 05/03/17 at 09:00; Stop 06/02/17 at 08:59 Home Med (Med Rec Complete!) ASDIRECTED XX ; Start 05/03/17 at 12:45; Stop at 12:45; Status DC Hydroxyzine HCl (Atarax) 25 mg Q4HP PRN PO ANXIETY/AGITATION Last administered on 05/07/17 21:51; Start 05/03/17 at 15:00; Stop 06/02/17 at 14:59 Magnesium Hydroxide (Milk Of Magnesia) 30 ml DAILYPRN PRN PO CONSTIPATION; Start 05/03/17 at 15:00; Stop 06/02/17 at 14:59 Nicotine (Nicoderm Cq 21mg) 1 patch DAILY TD Last administered on 05/08/17 09: 12; Start 05/03/17 at 09:00; Stop 06/02/17 at 08:59 Trazodone HCl (Desyrel) 50 mg QHSP PRN PO INSOMNIA Last administered on 21:51; Start 05/03/17 at 15:00; Stop 06/02/17 at 14:59 Allergies Coded Allergies: No Known Allergies (Unverified , 12/27/16) Christal Claire May 08, 2017 11:01
[2017-05-08 18:00] VITALS: BP 114/67
[2017-05-08] MEDS: hydrOXYzine 25 MG TAB PO PRN (22:24)
[2017-05-08] MEDS: traZODone 50 MG TAB PO PRN (22:24)
[2017-05-09 06:35] VITALS: BP 104/59
[2017-05-09] MEDS: FLUoxetine 20 MG CAP PO SCH (08:54)
[2017-05-09] MEDS: NICOTINE 21MG/24HR 1 EA TRANSDERMAL TD SCH (08:54)
[2017-05-09] MEDS: CYANOCOBALAMIN 500 MCG TAB PO SCH (08:55)
--- NOTE | 2017-05-09 15:26 | MHIPNPDOC ---
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 Patient was hospitalized from 12/27 - 01/02/17 due to depression, PTSD, and suicidal ideation. Just prior to current hospitalization, patient was brought to the emergency department by MPs who indicated patient's called due to telling his is going to kill himself, making suicidal gestures, and informing that she and children would be better off without him. 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 Embedded Linux Engineer met with patient today to assess treatment progress on inpatient unit. Patient reports anxiety level of 1/10 which he attributes to discharge planning , denies depression, denies suicidal and homicidal ideation, denies auditory and visual hallucinations, denies urge to engage in self-injurious behavior. Patient indicates he has been taking trazodone and states he has been sleeping better and denies nightmares or symptoms. Patient has also been utilizing hydroxyzine to address intermittent symptoms of anxiety with good effect reported. Patient indicates he continues to sleep well, denies nightmare symptoms. Patient indicates Prozac continues to work well and he denies medication side effects, continues to decline dosing adjustment. Patient indicates appetite is stable and reports some improvement to energy level and concentration and focus. Patient expresses improved insight today with regard to use of alcohol and behavior and events which preceded current hospitalization , agrees that he could benefit from substance abuse treatment, states he is agreeable to inpatient alcohol/TBI/PTSD treatment if [facility] will provide said services or if able to transfer to another facility. Patient states if he is not able to receive treatment inpatient and he remains interested in participating in [facility]. Patient presents with no signs of acute distress at time of interaction. VITALS: See below NEW CHRISTIAN RESULTS: No new results PAST MEDICAL/SURGICAL HISTORY: Vasectomy, inguinal hernia, chronic back pain, micro-tears to shoulders, shrapnel and face, bilateral hearing loss, multiple head injuries with loss of consciousness 4 for unknown duration. 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 Patient is hearing impaired. Speech: Of normal rate, rhythm, volume, spontaneous, coherent, patient is hearing impaired Thought processes: Linear, logical, goal-directed Thought content: Rational, logical, no tangentiality or paranoia noted Abstract reasoning and computation: Appears within normal limits Description of associations: Intact Description of abnormal or psychotic thoughts: Patient denies suicidal or homicidal ideation, denies auditory or visual hallucinations, does not appear to be responding to internal stimuli, does not endorse bizarre or paranoid ideation, and denies preoccupation with violence or obsessions Judgment: Fair, continues to improve Insight: Fair, continues to improve Orientation: A and O 3 Recent and remote memory: Requires further evaluation, appears generally intact with exception of events which preceded current hospitalization Attention span and concentration: Appear intact Fund of knowledge: Appears adequate Mood: "I feel good and ready to participate in treatment for my PTSD, TBI And alcohol." Patient denies depression, appears less anxious, no mood lability noted at time of interaction Affect: Blunted but brightens, congruent with mood DIAGNOSES: Major depressive disorder, PTSD, alcohol use disorder, adjustment disorder, TBI ASSESSMENT: Patient seems to be adjusting to unit well, is visible, easily engaged, is interacting with peers, is pleasant and cooperative with staff, and is participating in unit programming. Patient indicates medication regimen he has been taking an outpatient environment remains effective, denies need for dosing adjustment, has been utilizing trazodone and reports improved sleep, has also been utilizing hydroxyzine for intermittent anxiety and indicates medication is effective. Patient is denying medication side effects and denies need for antidepressant dosing adjustment. Patient is no longer minimizing the seriousness of his alcohol use and the events and behavior which led to current hospitalization. Patient verbalizes motivation for participating in inpatient treatment or [facility] and outpatient substance abuse treatment, states he also wants to return for treatment at [facility]. Patient is no longer minimizing 's concerns and states he wants to work toward strengthening their relationship and improving his physical and emotional health. Patient denies current suicidal or homicidal ideation and verbalizes awareness of how to access supportive services on the unit if needed. Will continue to monitor patient's response to medications and monitor for side effects, will evaluate need for medication dosing adjustment or change. Will also monitor patient safety and discharge readiness. Patient states [facility] is in process of referring him to the [facility] program and staff development coordinator continues to communicate with Cj Virk as to [facility] start date in effort to coordinate safe discharge plan. Patient reiterates current plan, when prepared for discharge, is to return home with , resume treatment through [facility], participate in outpatient substance abuse treatment, participate in psychotherapy and medication management, and participate in [facility] program. MANAGEMENT PLAN: Continue Prozac 40 mg po q day, trazodone 50 mg po hs PRN insomnia, and Atarax 25 mg po q 4 hours PRN anxiety/agitation Maintain safety precautions Patient to attend groups and participate in unit programming to develop coping strategies Engage patient in discharge planning process and arrange meeting with command to evaluate safe discharge planning when appropriate Patient to follow up with Cj Virk PCM upon discharge TIME SPENT: 25 minutes Vital Signs Vital Signs Date Time Temp Pulse Resp B/P (MAP) Pulse Ox O2 Delivery O2 Flow Rate FiO2 05/09/17 06:35 97.2 100 20 104/59 (74) 05/04/17 09:06 97 Room Air Current Medications Current Medications Acetaminophen (Tylenol Tab) 650 mg Q6HP PRN PO HEADACHE or DISCOMFORT; Start at 15:00; Stop 06/02/17 at 14:59 Al Hydrox/Mg Hydrox/Simethicone (Mylanta) 30 ml Q4HP PRN PO HEARTBURN/ INDIGESTION; Start 05/03/17 at 15:00; Stop 06/02/17 at 14:59 Cyanocobalamin (Vitamin B12) 1,000 mcg DAILY PO Last administered on 05/09/17 08:55; Start 05/03/17 at 09:00; Stop 06/02/17 at 08:59 Fluoxetine HCl (PROzac) 40 mg DAILY PO Last administered on 05/09/17 08:54; Start 05/03/17 at 09:00; Stop 06/02/17 at 08:59 Home Med (Med Rec Complete!) ASDIRECTED XX ; Start 05/03/17 at 12:45; Stop at 12:45; Status DC Hydroxyzine HCl (Atarax) 25 mg Q4HP PRN PO ANXIETY/AGITATION Last administered on 05/08/17 22:24; Start 05/03/17 at 15:00; Stop 06/02/17 at 14:59 Magnesium Hydroxide (Milk Of Magnesia) 30 ml DAILYPRN PRN PO CONSTIPATION; Start 05/03/17 at 15:00; Stop 06/02/17 at 14:59 Nicotine (Nicoderm Cq 21mg) 1 patch DAILY TD Last administered on 05/09/17 08: 54; Start 05/03/17 at 09:00; Stop 06/02/17 at 08:59 Trazodone HCl (Desyrel) 50 mg QHSP PRN PO INSOMNIA Last administered on 22:24; Start 05/03/17 at 15:00; Stop 06/02/17 at 14:59 Allergies Coded Allergies: No Known Allergies (Unverified , 12/27/16) Christal Claire May 09, 2017 15:26
[2017-05-09 18:57] VITALS: BP 135/59
[2017-05-09] MEDS: traZODone 50 MG TAB PO PRN (22:58)
[2017-05-09] MEDS: hydrOXYzine 25 MG TAB PO PRN (22:58)
[2017-05-10 06:27] VITALS: BP 131/65
[2017-05-10] MEDS: CYANOCOBALAMIN 500 MCG TAB PO SCH (09:15)
[2017-05-10] MEDS: FLUoxetine 20 MG CAP PO SCH (09:16)
[2017-05-10] MEDS: NICOTINE 21MG/24HR 1 EA TRANSDERMAL TD SCH (09:17)
--- NOTE | 2017-05-10 13:44 | MHIPNPDOC ---
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 Patient was hospitalized from 12/27 - 01/02/17 due to depression, PTSD, and suicidal ideation. Just prior to current hospitalization, patient was brought to the emergency department by MPs who indicated patient's called due to telling his is going to kill himself, making suicidal gestures, and informing that she and children would be better off without him. 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 Valve Seater Operator met with patient today to assess treatment progress on inpatient unit. Patient denies anxiety and depression today, denies suicidal and homicidal ideation, denies auditory and visual hallucinations, denies urge to engage in self-injurious behavior. Patient indicates he has been taking trazodone and sleeping well, denies nightmares symptoms, is also been utilizing hydroxyzine for intermittent symptoms of anxiety. Patient indicates Prozac continues to work well, denies need for dosing adjustment, and denies medication side effects. Patient indicates appetite remains stable and reports some improvement to energy level and concentration and focus. Patient continues to express improved insight today with regard to use of alcohol and behavior and events which preceded current hospitalization, agrees that he could benefit from substance abuse treatment, states he desires inpatient alcohol/TBI/PTSD treatment [facility] or if able to transfer to another facility. Patient states if he is not able to receive treatment inpatient and he remains interested in participating in [facility]. Patient presents with no signs of acute distress at time of interaction. VITALS: See below NEW CHRISTIAN RESULTS: No new results PAST MEDICAL/SURGICAL HISTORY: Vasectomy, inguinal hernia, chronic back pain, micro-tears to shoulders, shrapnel and face, bilateral hearing loss, multiple head injuries with loss of consciousness 4 for unknown duration. 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 Patient is hearing impaired. Speech: Of normal rate, rhythm, volume, spontaneous, coherent, patient is hearing impaired Thought processes: Linear, logical, goal-directed Thought content: Rational, logical, no tangentiality or paranoia noted Abstract reasoning and computation: Appears within normal limits Description of associations: Intact Description of abnormal or psychotic thoughts: Patient denies suicidal or homicidal ideation, denies auditory or visual hallucinations, does not appear to be responding to internal stimuli, does not endorse bizarre or paranoid ideation, and denies preoccupation with violence or obsessions Judgment: Fair, continues to improve Insight: Fair, continues to improve Orientation: A and O 3 Recent and remote memory: Requires further evaluation, appears generally intact with exception of events which preceded current hospitalization Attention span and concentration: Appear intact Fund of knowledge: Appears adequate Mood: "I feel good,positive about going to rehab for my drinking and PTSD." Patient denies depression, appears less anxious, no mood lability noted at time of interaction Affect: Blunted but brightens, congruent with mood DIAGNOSES: Major depressive disorder, PTSD, alcohol use disorder, adjustment disorder, TBI ASSESSMENT: Patient contunes to adjust well to unit, remains visible, easily engaged, is interacting with peers, is pleasant and cooperative with staff, and is participating in unit programming. Patient states current medication regimen is effective, denies medication side effects, denies declined dosing adjustment. Patient is no longer minimizing the seriousness of his alcohol use and the events and behavior which led to current hospitalization. Patient verbalizes motivation for participating in inpatient substance abuse/PTSD/TBI treatment or [facility] and outpatient substance abuse treatment, states if he does not receive inpatient treatment he wants to return to [facility] for outpatient treatment. Patient is no longer minimizing 's concerns and states he wants to work toward strengthening their relationship and improving his physical and emotional health. Patient denies current suicidal or homicidal ideation and verbalizes awareness of how to access supportive services on the unit if needed. Will continue to monitor patient's response to medications and monitor for side effects and will continue to evaluate need for medication dosing adjustment or change. Will also monitor patient safety and discharge readiness. Discharge corners attempting to arrange transfer to long-term care. Patient reiterates eventual discharge plan is to return home with after treatment, resume treatment through TBI, participate in outpatient substance abuse treatment, participate in psychotherapy and medication management, and participate in [facility] program. MANAGEMENT PLAN: Continue Prozac 40 mg po q day, trazodone 50 mg po hs PRN insomnia, and Atarax 25 mg po q 4 hours PRN anxiety/agitation Maintain safety precautions Patient to attend groups and participate in unit programming to develop coping strategies Engage patient in discharge planning process and arrange meeting with command to evaluate safe discharge planning when appropriate Patient to follow up with [facility] upon discharge TIME SPENT: 25 minutes Vital Signs Vital Signs Date Time Temp Pulse Resp B/P (MAP) Pulse Ox O2 Delivery O2 Flow Rate FiO2 05/10/17 06:27 97.0 80 18 131/65 (87) 05/04/17 09:06 97 Room Air Current Medications Current Medications Acetaminophen (Tylenol Tab) 650 mg Q6HP PRN PO HEADACHE or DISCOMFORT; Start at 15:00; Stop 06/02/17 at 14:59 Al Hydrox/Mg Hydrox/Simethicone (Mylanta) 30 ml Q4HP PRN PO HEARTBURN/ INDIGESTION; Start 05/03/17 at 15:00; Stop 06/02/17 at 14:59 Cyanocobalamin (Vitamin B12) 1,000 mcg DAILY PO Last administered on 05/10/17 09:15; Start 05/03/17 at 09:00; Stop 06/02/17 at 08:59 Fluoxetine HCl (PROzac) 40 mg DAILY PO Last administered on 05/10/17 09:16; Start 05/03/17 at 09:00; Stop 06/02/17 at 08:59 Home Med (Med Rec Complete!) ASDIRECTED XX ; Start 05/03/17 at 12:45; Stop at 12:45; Status DC Hydroxyzine HCl (Atarax) 25 mg Q4HP PRN PO ANXIETY/AGITATION Last administered on 05/09/17 22:58; Start 05/03/17 at 15:00; Stop 06/02/17 at 14:59 Magnesium Hydroxide (Milk Of Magnesia) 30 ml DAILYPRN PRN PO CONSTIPATION; Start 05/03/17 at 15:00; Stop 06/02/17 at 14:59 Nicotine (Nicoderm Cq 21mg) 1 patch DAILY TD Last administered on 05/10/17 09: 17; Start 05/03/17 at 09:00; Stop 06/02/17 at 08:59 Trazodone HCl (Desyrel) 50 mg QHSP PRN PO INSOMNIA Last administered on 22:58; Start 05/03/17 at 15:00; Stop 06/02/17 at 14:59 Allergies Coded Allergies: No Known Allergies (Unverified , 12/27/16) Christal Claire May 10, 2017 13:44
[2017-05-10 18:00] VITALS: BP 114/56
[2017-05-10] MEDS: traZODone 50 MG TAB PO PRN (22:32)
[2017-05-10] MEDS: hydrOXYzine 25 MG TAB PO PRN (22:32)
[2017-05-11 06:36] VITALS: BP 103/70
[2017-05-11] MEDS: CYANOCOBALAMIN 500 MCG TAB PO SCH (08:47)
[2017-05-11] MEDS: FLUoxetine 20 MG CAP PO SCH (08:47)
[2017-05-11] MEDS: NICOTINE 21MG/24HR 1 EA TRANSDERMAL TD SCH (08:47)
--- NOTE | 2017-05-11 09:12 | MHIPNPDOC ---
[facility] Progress Note Progress Note DATE OF SERVICE: 05/11/17 Entry made an error, patient was discharge date of entry. Refer to discharge summary for details. Vital Signs Vital Signs Date Time Temp Pulse Resp B/P (MAP) Pulse Ox O2 Delivery O2 Flow Rate FiO2 05/11/17 06:36 98.7 73 20 103/70 (81) Current Medications Current Medications Acetaminophen (Tylenol Tab) 650 mg Q6HP PRN PO HEADACHE or DISCOMFORT; Start at 15:00; Stop 06/02/17 at 14:59 Al Hydrox/Mg Hydrox/Simethicone (Mylanta) 30 ml Q4HP PRN PO HEARTBURN/ INDIGESTION; Start 05/03/17 at 15:00; Stop 06/02/17 at 14:59 Cyanocobalamin (Vitamin B12) 1,000 mcg DAILY PO Last administered on 05/11/17 08:47; Start 05/03/17 at 09:00; Stop 06/02/17 at 08:59 Fluoxetine HCl (PROzac) 40 mg DAILY PO Last administered on 05/11/17 08:47; Start 05/03/17 at 09:00; Stop 06/02/17 at 08:59 Home Med (Med Rec Complete!) ASDIRECTED XX ; Start 05/03/17 at 12:45; Stop at 12:45; Status DC Hydroxyzine HCl (Atarax) 25 mg Q4HP PRN PO ANXIETY/AGITATION Last administered on 05/10/17 22:32; Start 05/03/17 at 15:00; Stop 06/02/17 at 14:59 Magnesium Hydroxide (Milk Of Magnesia) 30 ml DAILYPRN PRN PO CONSTIPATION; Start 05/03/17 at 15:00; Stop 06/02/17 at 14:59 Nicotine (Nicoderm Cq 21mg) 1 patch DAILY TD Last administered on 05/11/17 08: 47; Start 05/03/17 at 09:00; Stop 06/02/17 at 08:59 Trazodone HCl (Desyrel) 50 mg QHSP PRN PO INSOMNIA Last administered on 22:32; Start 05/03/17 at 15:00; Stop 06/02/17 at 14:59 Allergies Coded Allergies: No Known Allergies (Unverified , 2/8/17) Christal Claire May 11, 2017 09:12
[2017-05-11] MEDS ORDERED: TRAZO50TA PO ×2 (13:59→14:30)
[2017-05-11] MEDS ORDERED: NICO21PAT TD (13:59)
[2017-05-11] MEDS ORDERED: FLUO20CA9 PO (13:59)
[2017-05-11] MEDS ORDERED: HYDR25T PO (13:59)
[2017-05-11] MEDS ORDERED: TRAZ50TA4 PO (14:36)
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
== END 2017-05-11 15:06 | disposition home or self-care (01) | DRG 881 ==
LOC: M ED 06:08 → M ED INP 12:01 → M PSY 13:00
PROVIDERS: ADMIT Psychiatry & Neurology Psychiatry; ATTEND Psychiatry & Neurology Psychiatry
DX: F32.9 Major depressive disorder, single episode, unspecified (principal); F10.10 Alcohol abuse, uncomplicated; F43.20 Adjustment disorder, unspecified; F43.10 Post-traumatic stress disorder, unspecified; Z79.899 Other long term (current) drug therapy; F17.200 Nicotine dependence, unspecified, uncomplicated